=== PATIENT | female | born 1970 | race Caucasian/White ===

== ENCOUNTER 2023-03-21 18:28 | Emergency (ER) | payer OTHER, SELFPAY ==
[2023-03-21 18:34] VITALS: BP 172/99; PULSE 98; RESP 16; TEMP 36.7; O2SAT 99; BMI 25.6
--- NOTE | 2023-03-21 18:55 | W.ED.GENADLT ---
HPI - General Adult General: Chief complaint: Ear Stated complaint: Ear and throat pain Time Seen by Provider: 03/21/23 18:33 Source: patient History of Present Illness: Lymphadenopathy in her anterior neck. She notes that this has been a significant problem for the last couple of weeks. She has had this on and off, though, for the last year. She gives a history of having several outside cats, a couple of which last year around the same time. 2 more cats have recently, and another one is sick. She took the cat to the vet today, and the network technical analyst was suspicious for bobcat fever. She has pulled several ticks off of her, and she has been scratched by her other cats. Onset (ago): week(s) Location: neck Radiation: non-radiation Severity: moderate Quality: burning and aching Pain Consistency: intermittent Relieving factors: none Exacerbating factors: eating and other Associated symptoms: Reports headache(s); Deny chest pain, confusion, cough, diaphoresis, dyspnea, fevers/chills, nausea, rash, palpitations, short of breath or vomiting Review of Systems Const: Denies: diaphoresis Eyes: Denies: change in vision ENMT: Reports: throat pain, odynophagia, ear or mastoid pain and sinus pain; Denies: enlarged tonsils, mouth pain, swelling of lips/tongue, dental pain, ear discharge, change in hearing, tinnitus, nasal discharge, nasal congestion, nasal obstruction, epistaxis or post nasal drip Card: Denies: chest pain or palpitations Resp: Denies: dyspnea GI: Denies: nausea or vomiting Musc: Reports: neck pain Skin/Breast: Denies: rash Neuro: Reports: headache(s); Denies: confusion Physical Exam Const: COMMON NORMALS: no acute distress GENERAL APPEARANCE: cooperative; not ill appearing and not frail appearing HENMT: COMMON NORMALS: normocephalic, atraumatic and Normal external nose present HEAD & SCALP: normocephalic and atraumatic FACE & SINUS: normal facial exam and face symmetric NOSE: Normal external nose present Eye: COMMON NORMALS: Equal, round and reactive pupils present and EOMs intact bilaterally PUPIL: Yes Equal, round and reactive pupils present Neck/C-Spine: GENERAL: Yes trachea midline, Yes lymphadenopathy Lymphadenopathy location: submandibular and anterior cervical soft and tender and No submandibular swelling Chest: CHEST: Yes Symmetrical chest wall rise Resp: COMMON NORMALS: normal respiratory effort, No retractions, No use of accessory muscles and clear to auscultation bilaterally AUSCULTATION: clear to auscultation bilaterally Cardio: COMMON NORMALS: regular rate and regular rhythm RATE: regular rate RHYTHM: regular rhythm GI: COMMON NORMALS: Normal to inspection, nondistended, normoactive bowel sounds present Extremity: COMMON NORMALS: no pedal edema Neuro: OSKAR COMA SCALE: document GCS findings Oskar coma scale eye opening: Spontaneous [place] coma scale verbal response: Orientated [place] coma scale motor response: Obey commands [place] coma scale total score: 15 SENSORY EXAM: Yes extremities (intact) Psych: COMMON NORMALS: speech normal SPEECH: Yes normal speech Skin: COMMON NORMALS: no rashes or lesions noted NARRATIVE SKIN EXAM: Multiple bug bites in various stages of healing. GENERAL SKIN EXAM: no rashes or lesions noted Course Vital Signs: Vital signs: Vital Signs Temperature 98.1 F 03/21/23 18:34 Pulse Rate 80 03/21/23 20:04 Respiratory Rate 16 03/21/23 20:04 Blood Pressure 133/97 03/21/23 20:04 Pulse Oximetry 94 03/21/23 20:04 Oxygen Delivery Me thod Room Air 03/21/23 18:34 MDM - General Adult Medical Decision Making Humans do not get bobcat fever. However, other tickborne and/or cat borne diseases could cause tender lymphadenopathy. She will be covered for tickborne diseases as well as tularemia, with additional coverage for cat scratch disease. She is given 1 dose of dexamethasone for lymphadenopathy swelling and tenderness. We will ask case management to make her a PCP follow-up appointment. Lab Data 03/21/23 19:13 03/21/23 19:13 Laboratory Results WBC 8.7 10^3/uL (4.0-10.0) 03/21/23 19:13 RBC 4.21 10^6/uL (4.1-5.3) 03/21/23 19:13 Hgb 12.9 g/dL (11.5-15.3) 03/21/23 19:13 Hct 39.3 % (37.0-47.0) 03/21/23 19:13 MCV 93.3 fl (81-99) 03/21/23 19:13 MCH 30.6 pg (28.0-34.0) 03/21/23 19:13 MCHC 32.8 g/dL (30.0-36.0) 03/21/23 19:13 RDW 14.0 % (12.1-15.1) 03/21/23 19:13 Plt Count 312 10^3/cmm (130-400) 03/21/23 19:13 MPV 10.0 fL (7.4-10.4) 03/21/23 19:13 Neut % (Auto) 45.2 % 03/21/23 19:13 Lymph % (Auto) 40.1 % 03/21/23 19:13 [place] % (Auto) 8.6 % 03/21/23 19:13 Eos % (Auto) 5.3 % 03/21/23 19:13 Baso % (Auto) 0.6 % 03/21/23 19:13 Neut # (Auto) 3.93 10^3/uL (1.8-7.7) 03/21/23 19:13 Lymph # (Auto) 3.5 10^3/uL (0.8-4.8) 03/21/23 19:13 [place] # (Auto) 0.8 10^3/uL (0.2-0.9) 03/21/23 19:13 Eos # (Auto) 0.5 10^3/uL (0.0-0.8) 03/21/23 19:13 Baso # (Auto) 0.1 10^3/uL (0.0-0.1) 03/21/23 19:13 Nucleated RBC % (auto) 0 % 03/21/23 19:13 Nucleated RBCs # 0.0 /100WBC 03/21/23 19:13 Sodium 138 mmol/L (136-145) 03/21/23 19:13 Potassium 3.6 mmol/L (3.5-5.1) 03/21/23 19:13 Chloride 104 mmol/L (98-107) 03/21/23 19:13 Carbon Dioxide 22 mmol/L (22-29) 03/21/23 19:13 Anion Gap 15.6 (5-19) 03/21/23 19:13 BUN 13 mg/dL (6-20) 03/21/23 19:13 Creatinine 0.8 mg/dL (0.5-0.9) 03/21/23 19:13 GFR Calculation 75.9 mL/min (90-130) L 03/21/23 19:13 Glucose 97 mg/dL (65-115) 03/21/23 19:13 Calculated Osmolality 286 mOsm/kg (285-295) 03/21/23 19:13 Calcium 9.6 mg/dL (8.5-10.5) 03/21/23 19:13 Total Bilirubin 0.2 mg/dL (0.15-1.2) 03/21/23 19:13 AST 20 U/L (0-32) 03/21/23 19:13 ALT 19 U/L (0-33) 03/21/23 19:13 Alkaline Phosphatase 77 U/L (35-105) 03/21/23 19:13 Total Protein 7.6 g/dL (6.6-8.7) 03/21/23 19:13 Albumin 4.6 g/dL (3.5-5.2) 03/21/23 19:13 Globulin 3.0 g/dL (1.3-4.6) 03/21/23 19:13 Discharge Plan Discharge Patient Disposition: Home Clinical Impression: Acute lymphadenitis Condition: Stable Prescriptions: New doxycycline hyclate 100 mg tablet 100 mg PO BID 14 Days Qty: 28 0RF azithromycin 250 mg tablet See Rx Instructions .ROUTE .COMPLEX Qty: 6 0RF Rx Instructions: For 250 mg dose pack: take 500 mg today (day 1), then 250 mg for 4 days (days 2-5) Discharge Orders: Discharge ED (Routine); Ordered 03/21/23 Ordered By: Arben Wakefield Patient Instructions: Adenitis (ED) Coding Level of Care Code ED Sales Service Professional for Stephen Triplett
[2023-03-21 19:23] LABS: Basophils # 0.1 10^3/uL (0.0-0.1); Basophils % 0.6 %; Eosinophils # 0.5 10^3/uL (0.0-0.8); Eosinophils % 5.3 %; Hematocrit 39.3 % (37.0-47.0); Hemoglobin 12.9 g/dL (11.5-15.3); Lymphocytes # 3.5 10^3/uL (0.8-4.8); Lymphocytes % 40.1 %; Mean Corpuscular HGB Conc 32.8 g/dL (30.0-36.0); Mean Corpuscular Hemoglobin 30.6 pg (28.0-34.0); Mean Corpuscular Volume 93.3 fl (81-99); Monocytes # 0.8 10^3/uL (0.2-0.9); Monocytes % 8.6 %; Neutrophils # 3.93 10^3/uL (1.8-7.7); Neutrophils % 45.2 %; Nucleated Red Blood Cells % 0 %; Platelet Count 312 10^3/cmm (130-400); Red Blood Count 4.21 10^6/uL (4.1-5.3); White Blood Count 8.7 10^3/uL (4.0-10.0)
[2023-03-21] MEDS: doxycycline 100 mg Tablet PO (19:38)
[2023-03-21] MEDS: dexamethasone 4 mg Tablet 10 MG PO (19:38)
[2023-03-21] MEDS: azithromycin 250 mg Tablet 500 MG PO (19:38)
[2023-03-21 19:46] LABS: Alanine Aminotransferase 19 U/L (0-33); Albumin Level 4.6 g/dL (3.5-5.2); Alkaline Phosphatase 77 U/L (35-105); Anion Gap 15.6 (5-19); Aspartate Amino Transferase 20 U/L (0-32); Blood Urea Nitrogen 13 mg/dL (6-20); Calcium 9.6 mg/dL (8.5-10.5); Carbon Dioxide 22 mmol/L (22-29); Chloride 104 mmol/L (98-107); Glomerular Filtration Rate 75.9 mL/min (90-130); Glucose 97 mg/dL (65-115); Osmolality Calculated 286 mOsm/kg (285-295); Potassium 3.6 mmol/L (3.5-5.1); Sodium 138 mmol/L (136-145); Total Bilirubin 0.2 mg/dL (0.15-1.2); Total Protein 7.6 g/dL (6.6-8.7)
[2023-03-21 20:04] VITALS: BP 133/97; PULSE 80; RESP 16; O2SAT 94
--- NOTE | 2023-03-23 11:10 | DCPLANNER ---
Addendum entered by Lauren Mallory 04/24/23 10:37: Patient attended appointment. Addendum entered by Lauren Mallory 03/26/23 07:47: Patient called home health care case manager back wanting to get established with a primary care. manager pharmaceutical called [facility], gave clinic patients information. A follow up appointment was scheduled for , April 09, 2023 at 7:[address] Paz. Patient is aware of appointment. Original Note: manager pharmaceutical had message to speak with patient about getting established with a primary care physician. manager pharmaceutical called patient and she stated that she would call home health care case manager back about getting established with a provider.
[2023-03-25 16:03] LABS: Lyme AB Screen <0.90 index
[2023-03-31 16:59] LABS: RMSF IGG NOT DETECTED; RMSF IGM NOT DETECTED
[2023-03-31 21:53] LABS: E. Chaffeensis AB IGG <1:64; E. Chaffeensis AB IGM <1:20
== END 2023-03-21 19:43 | disposition home or self-care (01) ==
PROVIDERS: Emergency Provider Emergency Medicine
DX: L04.9 Acute lymphadenitis, unspecified (principal)
CPT/HCPCS: 36415; 80053; 85025; 86618; 86666; 86757; 99283; J8540; Q0144

== ENCOUNTER → 2023-04-09 07:00 | Outpatient (BNVA) | payer OTHER, SELFPAY | PROVIDERS: PCP Family Medicine; Visit Provider Family Medicine | DX: L67.9 Hair color and hair shaft abnormality, unspecified (principal) | CPT/HCPCS: 84443; 86038 ==

== ENCOUNTER 2023-04-29 06:04 | Outpatient (CLI) | payer OTHER, SELFPAY ==
--- NOTE | 2023-04-29 06:30 | USCV_ITS ---
Olamide Au Age: 52 Gender: F : 1970 Exam Date: 04/29/2023 06:22 Ordering Phys: Lara Paz MD Technologist: Exam Location: [facility] [place] Indication: Mitral Valve Prolapse BP: 113 / 80 HR: 66 Rhythm: Sinus Technical Quality: Adequate MEASUREMENTS (Male / Female) Normal Values 2D ECHO LV Diastolic Diameter PLAX 4.6 cm 4.2 - 5.9 / 3.9 - 5.3 cm LV Systolic Diameter PLAX 2.9 cm IVS Diastolic Thickness 1.1 cm 0.6 - 1.0 / 0.6 - 0.9 cm IVS Systolic Thickness 1.3 cm LVPW Diastolic Thickness 0.8 cm 0.6 - 1.0 / 0.6 - 0.9 cm LVPW Systolic Thickness 1.4 cm LVOT Diameter 1.9 cm LV Ejection Fraction 2D Teich 67.9 % LV Ejection Fraction MOD 2C 72.8 % LV Ejection Fraction 2C AL 71.8 % LA Diameter 3.3 cm IVC Diameter 1.3 cm M-MODE Aortic Annulus Diameter 3.1 cm LA Ao Ratio MM 1.1 MV E Point Septal Separation 1.7 cm DOPPLER AV Peak Velocity 146.0 cm/s LVOT Peak Velocity 108.0 cm/s AV Area Cont Eq vti 2.0 cm squared AV Area Cont Eq pk 2.2 cm squared MV Area PHT 3.6 cm squared Mitral E to A Ratio 1.0 MV E' Velocity 37.0 cm/s Mitral E to MV E' Ratio 4.3 Mitral E to LV E' Lateral Ratio 3.7 Mitral E to LV E' Septal Ratio 5.1 TR Peak Velocity 127.0 cm/s TR Peak Gradient 6.5 mmHg TV Peak E Velocity 69.0 cm/s Right Atrial Pressure 3.0 mmHg Pulmonary Artery Systolic Pressu 9.5 mmHg RV Acceleration Time 0.2 s FINDINGS Left Ventricle Normal left ventricular size, systolic function and wall thickness, with no regional wall motion abnormalities. Normal left ventricular wall thickness. Normal diastolic filling pattern. Left ventricular ejection fraction is estimated at 68 %. Right Ventricle The right ventricle is normal in size and function. Right Atrium The right atrium is normal in size. Left Atrium The left atrium is normal in size. Mitral Valve Structurally normal mitral valve without significant stenosis or prolapse. There is no mitral regurgitation. Aortic Valve Structurally normal aortic valve without significant sclerosis or stenosis. There is no aortic regurgitation. Tricuspid Valve Structurally normal tricuspid valve without significant stenosis or regurgitation. Pulmonary artery systolic pressure is normal. Pulmonic Valve Structurally normal pulmonic valve without significant stenosis. There is no pulmonic regurgitation. Pericardium Normal pericardium without effusion. Aorta Normal ascending aorta dimension. IVC The inferior vena cava appears normal. CONCLUSIONS Normal transthoracic echocardiogram. There is no evidence for mitral valve prolapse. There are no prior echocardiogram studies to compare. Dr. Manny Rodriguez MD (Electronically Signed) Final Date: 29 April 2023 14:58 S
== END 2023-04-29 06:05 | disposition home or self-care (01) ==
PROVIDERS: PCP Family Medicine; Visit Provider Family Medicine
DX: I34.1 Nonrheumatic mitral (valve) prolapse (principal)
CPT/HCPCS: 84443; 86038; 93306

== ENCOUNTER 2023-04-30 08:03 | Outpatient (CLI) | payer OTHER, SELFPAY ==
--- NOTE | 2023-04-30 08:25 | MM_ITS ---
WS: [id number] Bilateral screening 3D tomosynthesis digital mammogram, 04/30/2023 Clinical Data: SCREENING Comparison: None. Findings: The breast parenchymal pattern shows heterogeneous density. No spiculated masses or clustered calcifi cations are seen. There are no secondary signs of carcinoma. There are scattered benign calcification s in both breasts. MM/[id number] Impression: 1. Negative bilateral mammogram with no prior exam for review. 2. Recommend annual screening mammograms. BIRADS: 1-Negative FOLLOW UP: 1 Year Follow-up The CAD work checker was used.
== END 2023-04-30 08:04 | disposition home or self-care (01) ==
LOC: RAD 08:06
PROVIDERS: PCP Family Medicine; Visit Provider Family Medicine
DX: Z12.31 Encounter for screening mammogram for malignant neoplasm of breast (principal)
CPT/HCPCS: 77063; 77067

== ENCOUNTER 2023-06-08 20:00 | Outpatient (CLI) | payer OTHER, SELFPAY | END 2023-06-08 20:01 | disposition home or self-care (01) | LOC: SLEEP 06-09 06:37 | PROVIDERS: PCP Family Medicine; Visit Provider Family Medicine | DX: G47.30 Sleep apnea, unspecified (principal) | CPT/HCPCS: 95810 ==

== ENCOUNTER → 2023-11-11 07:54 | Outpatient (BNVA) | payer OTHER, SELFPAY | PROVIDERS: PCP Family Medicine; Visit Provider Family Medicine | DX: R19.7 Diarrhea, unspecified (principal) | CPT/HCPCS: 86003; 86008 ==

== ENCOUNTER → 2023-12-23 07:34 | Outpatient (BNVA) | payer OTHER, SELFPAY | PROVIDERS: PCP Family Medicine; Visit Provider Family Medicine | DX: R00.0 Tachycardia, unspecified (principal) | CPT/HCPCS: 80053; 83735; 85025 ==

== ENCOUNTER 2024-02-12 22:37 | Emergency (ER) | payer OTHER, SELFPAY ==
[2024-02-12 22:45] VITALS: BP 190/105; PULSE 74; RESP 16; TEMP 36.9; O2SAT 100
[2024-02-12 23:31] LABS: Basophils % 0.1 %; Hematocrit 38.8 % (36-47); Lymphocytes # 1.7 10^3/uL (0.8-4.8); Lymphocytes % 8.6 %; Mean Corpuscular HGB Conc 33.5 g/dL (30-55); Mean Corpuscular Hemoglobin 30.4 pg (27-33); Mean Corpuscular Volume 90.7 fl (85-98); Mean Platelet Volume 10.7 fL (7.4-10.4); Monocytes # 0.9 10^3/uL (0.2-0.9); Monocytes % 4.8 %; Neutrophils # 16.72 10^3/uL (1.8-7.7); Neutrophils % 85.9 %; Nucleated Red Blood Cells % 0 %; Platelet Count 383 10^3/cmm (157-399); Red Blood Count 4.28 10^6/uL (3.85-5.65); Red Cell Distribution Width 14.4 % (12.1-15.1); White Blood Count 19.46 10^3/uL (3.29-11.43)
[2024-02-12] MEDS: sodium chloride 0.9% 1,000 ML 999 ML IV (23:44)
[2024-02-12 23:45] LABS: Alanine Aminotransferase 26 U/L (0-33); Albumin Level 4.8 g/dL (3.5-5.2); Alkaline Phosphatase 95 U/L (35-105); Anion Gap 21.7 (5-19); Aspartate Amino Transferase 30 U/L (0-32); Blood Urea Nitrogen 25 mg/dL (6-20); Calcium 10.4 mg/dL (8.5-10.5); Carbon Dioxide 18 mmol/L (22-29); Chloride 101 mmol/L (98-107); Creatinine Clr Calc Pharmacy 41.8957; Globulin 3.4 g/dL (1.3-4.6); Glomerular Filtration Rate 39.6 mL/min (90-130); Glucose 161 mg/dL (65-115); Osmolality Calculated 292 mOsm/kg (285-295); Potassium 3.7 mmol/L (3.5-5.1); Sodium 137 mmol/L (136-145); Total Bilirubin 0.5 mg/dL (0.15-1.2); Total Protein 8.2 g/dL (6.6-8.7)
[2024-02-12] MEDS: metoclopramide 5 mg/mL SDV 2 mL 10 MG IVP (23:45)
[2024-02-12] MEDS: dexamethasone 10 mg/mL INJ 8 MG IVP (23:46)
[2024-02-12] MEDS: diphenhydrAMINE 50 mg/mL SDV 1mL IVP (23:48)
[2024-02-12] MEDS: ketorolac 60 mg/2 mL INJ 30 MG IVP (23:49)
[2024-02-13 00:09] LABS: Urine Appearance Clear (CLEAR); Urine Color Yellow (Yellow); pH Urine 5 (5-7)
[2024-02-13 00:10] LABS: Add Urine Microscopic? YES; Amorphous Sediment Urine TRACE /hpf; Bacteria Urine TRACE /hpf; Bilirubin Urine 1+ (Negative); Blood Urine 3+ (Negative); Coarse Granular Casts Urine 0-4 /lpf; Glucose Urine UA Norm (Normal); Ketones Urine 1+ (Negative); Leukocyte Esterase Urine Trace (Negative); Mucus Urine 1+ /hpf; Nitrate Urine Negative (Negative); Protein Urine 1+ (Negative); RBC Urine 0-4 /hpf (0-2); Urobilinogen Urine Neg (Negative)
[2024-02-13 00:11] VITALS: BP 167/87; PULSE 73; RESP 18; O2SAT 95
[2024-02-13 00:15] LABS: Influenza A by IFA negative (Negative); Influenza B by IFA negative (Negative); SARS Covid-2 Antigen negative (Negative)
--- NOTE | 2024-02-13 00:17 | CTR_ITS ---
PROCEDURE INFORMATION: Exam: CT Abdomen And Pelvis Without Contrast Exam date and time: 02/13/2024 12:25 AM Age: 53 years old Clinical indication: Abdominal pain; Prior surgery; Surgery date: 6+ months; Surgery type: Gb. Appy. Hysterectomy. Patient HX: Left flank pain with hematuria. ; Additional info: N/v, abd pain, blood in urine TECHNIQUE: Imaging protocol: Computed tomography of the abdomen and pelvis without contrast. Radiation optimization: All CT scans at this facility use at least one of these dose optimization techniques: automated exposure control; mA and/or kV adjustment per patient size (includes targeted exams where dose is matched to clinical indication); or iterative reconstruction. COMPARISON: No relevant prior studies available. RADIATION DOSE METRICS: Total DLP (mGy-cm): 384.81 FINDINGS: Lungs: Lingular atelectasis. Emphysematous changes. Liver: Normal. No mass. Gallbladder and bile ducts: Cholecystectomy. Pancreas: Normal. No ductal dilation. Spleen: Normal. No splenomegaly. Adrenal glands: Normal. No mass. Kidneys and ureters: Left ureterovesical junction 3.2 mm calculus with moderate hydronephrosis and hydroureter with perinephric edema suggestive of associated pyelonephritis. Left kidney nonobstructing calyceal stone. Stomach and bowel: Unremarkable. No obstruction. No mucosal thickening. Appendix: No evidence of appendicitis. Intraperitoneal space: Unremarkable. No free air. No significant fluid collection. Vasculature: Unremarkable. No abdominal aortic aneurysm. Lymph nodes: Unremarkable. No enlarged lymph nodes. Urinary bladder: Urinary bladder wall thickening, please correlate for cystitis versus nondistention. Reproductive: Unremarkable as visualized. Bones/joints: Unremarkable. No acute fracture. Soft tissues: Small umbilical hernia containing omentum without bowel. CT/CT kidney stone [id number] IMPRESSION: 1. Left ureterovesical junction 3.2 mm calculus with moderate hydronephrosis and hydroureter with perinephric edema suggestive of associated pyelonephritis. 2. Left kidney nonobstructing calyceal stone. 3. Urinary bladder wall thickening, please correlate for cystitis versus nondistention. 4. Small umbilical hernia containing omentum without bowel. 5. Lingular atelectasis. 6. Emphysematous changes. 7. Cholecystectomy.
[2024-02-13 00:50] VITALS: BP 167/87; PULSE 74; RESP 18; O2SAT 96
--- NOTE | 2024-02-13 00:57 | ED_ITS ---
HPI - Nausea/Vomiting/Diarrhea 2 General: Chief complaint: Nausea/Vomiting/Diarrhea Stated complaint: N/V, Chills,Fever Time Seen by Provider: 02/12/24 23:11 Source: patient Mode of arrival: ambulatory Limitations: no limitations History of Present Illness: This patient is a 53-year-old female presenting to the emergency department complaining of nausea and vomiting for the past 2 days. She also notes a few intermittent episodes of left-sided flank/abdominal exam, but notes that she has had no urinary symptoms. She states that she has been unable to keep down food or liquid. She initially thought that her symptoms were due to a migraine, as she is currently reporting a headache. However she notes that she has normally able to control these with Excedrin. She is also noting some diaphoresis as well as chills, though no fevers. No [id number] medications have helped with her symptoms. MD elicited complaint: nausea, vomiting, abdominal pain and flank pain Onset (ago): day(s) Description of vomiting: watery Associated nausea: Yes Associated abdominal pain: Yes Location of pain: LLQ and L flank Pain consistency: intermittent Severity: moderate Quality: cramping and stabbing Exacerbating factors: none Relieving factors: rest Associated symtoms: Reports diaphoresis, headache(s) and nausea; Denies chest pain, dizziness, dysuria or palpitations Review of Systems 2 General: Reports: 10 or more systems reviewed and unremarkable except in HPI and below Const: Reports: chills and diaphoresis; Denies: fever(s), change in appetite or change in weight ENMT: Denies: throat pain or hoarseness Card: Denies: chest pain, palpitations or lightheadedness Resp: Denies: dyspnea, productive cough or wheezing GI: Reports: abdominal pain, nausea and vomiting; Denies: diarrhea or constipation : Reports: flank pain; Denies: difficulty voiding, dysuria, urinary frequency or urinary urgency Musc: Denies: neck pain or back pain Skin/Breast: Denies: rash or new lesions Neuro: Reports: headache(s); Denies: dizziness PFSH ED 2 PFSH: Medical History Migraine with aura Surgical History History of lumpectomy of right breast History of appendectomy History of cholecystectomy History of total hysterectomy with bilateral salpingo-oophorectomy (BSO) Family History Mother Cancer lung (smoke related) Father Hyperlipidemia Atrial fibrillation Lung disease asthma Social History Smoking and tobacco/nicotine status: former use of tobacco/nicotine Quit status (tobacco/nicotine): has quit using Year quit tobacco: 2014 Former quit date comment: 2 ppd x 25 years Alcohol intake: never Substance/Drug Use: current Lives independently: Yes Household members: spouse Marital status: Number of children: 2 Number of grandchildren: 7 Current occupational status: employed 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 [employer] Physical Exam 2 Const: COMMON NORMALS: no acute distress, average body habitus, patient oriented x3, no limitations, healthy appearing, alert and well nourished G ENERAL APPEARANCE: cooperative and comfortable ORIENTATION/CONSCIOUSNESS: Yes awake HENMT: COMMON NORMALS: normocephalic, atraumatic, hearing grossly normal bilaterally, external ears normal, Normal external nose present, Normal nasal mucous membranes and turbinates present and moist oral mucous membranes HEAD & SCALP: normocephalic and atraumatic NOSE: Normal external nose present and Normal nasal mucous membranes and turbinates present EXTERNAL EAR: Yes external ears normal Eye: COMMON NORMALS: Equal, round and reactive pupils present, EOMs intact bilaterally, conjunctivae normal and normal visual nunez by confrontation C ONJUNCTIVA: Yes conjunctivae normal PUPIL: Yes Equal, round and reactive pupils present Neck/C-Spine: COMMON NORMALS: full ROM, supple, no meningeal signs and no JVD Resp: COMMON NORMALS: normal respiratory effort, No retractions, No use of accessory muscles and clear to auscultation bilaterally AUSCULTATION: clear to auscultation bilaterally, no crackles, no rales, no rhonchi and no wheezes Cardio: COMMON NORMALS: no JVD, regular rate, regular rhythm, S1 normal heart sound present, S2 normal heart sound present, No gallops present (Cardio), No clicks present (Cardio), No murmurs present (Cardio), No rub (Cardio) and Peripheral pulses 2+ throughout RATE: regular rate RHYTHM: regular rhythm HEART SOUNDS: S1 normal heart sound present and S2 normal heart sound present PERIPHERAL PULSES: Peripheral pulses 2+ throughout GI: COMMON NORMALS: Normal to inspection, nondistended, normoactive bowel sounds present, Soft to palpation, non-tender, No hepatosplenomegaly present and no masses AUSCULTATION: Yes normoactive bowel sounds PALPATION: Yes Soft to palpation, No Guarding due to palpation present (GI), No Rigid due to palpation and Yes No hepatosplenomegaly present RECTAL EXAM: deferred : COMMON NORMALS: Yes no CVA tenderness BLADDER/KIDNEY EXAM: Yes no CVA tenderness Back/Pelvis: COMMON NORMALS: no CVA tenderness Extremity: COMMON NORMALS: normal to inspection and full ROM Neuro: COMMON NORMALS: patient oriented x3, moves all extremities, no focal motor deficits and no sensory deficits noted SENSORIUM/ORIENTATION: Yes alert MENINGEAL SIGNS: Yes no meningeal signs Psych: COMMON NORMALS: mental status grossly normal, cooperative and speech normal SPEECH: Yes normal speech Skin: COMMON NORMALS: no rashes or lesions noted GENERAL SKIN EXAM: no rashes or lesions noted Course 2 Vital Signs: Vital signs: Vital Signs Temperature 98.5 F 02/12/24 22:45 Pulse Rate 74 02/13/24 00:50 Respiratory Rate 18 02/13/24 00:50 Blood Pressure 167/87 02/13/24 00:50 Pulse Oximetry 96 02/13/24 00:50 Oxygen Delivery Me thod Room Air 02/12/24 22:45 MDM - Nausea/Vomiting/Diarrhea Medical Decision Making This patient was seen for 2 days of nausea and vomiting as well as intermittent episodes of left-sided pain. On evaluation initially she was found to be hypertensive, this was decreased after treatment. Otherwise she was afebrile and nontoxic-appearing on exam. Examination ultimately unremarkable as there was no reproducible tenderness to palpation about her abdomen and she was normal to cardiopulmonary auscultation. She did request a migraine cocktail, which I treated her with this and upon recheck states that this was better. Her CBC showed an elevated white count at 19 with evidence of left shift. She did note to me history of CKD stage II, CMP labs showed evidence of kidney disease. Patient notes she is currently being established with a inspector watch parts for this. A urinalysis showed moderate amount of blood as well as evidence of potential infection, and due to the consistency of her pain I ordered a abdominal CT without contrast to evaluate for any stones. This did show evidence of a 3.2 mm UVJ stone with some moderate hydronephrosis and hydroureter. Condition consistent with a pyelonephritis, in which she will be treated with Levaquin. I will also send her home with Zofran for her nausea and encouraged her to drink plenty of fluids. She is given strict return precautions to the ED, to which she agrees. She states she is ready to go home now and she is clinically stable for discharge. No need to consult urology at this time due to lack of obstruction and small size of stone. Patient will be discharged home. Lab Data I reviewed the patient's lab results. 02/12/24 23:10 02/12/24 23:10 Radiology Impressions Abdomen/Pelvis CT 02/13/24 00:17 IMPRESSION: 1. Left ureterovesical junction 3.2 mm calculus with moderate hydronephrosis and hydroureter with perinephric edema suggestive of associated pyelonephritis. 2. Left kidney nonobstructing calyceal stone. 3. Urinary bladder wall thickening, please correlate for cystitis versus nondistention. 4. Small umbilical hernia containing omentum without bowel. 5. Lingular atelectasis. 6. Emphysematous changes. 7. Cholecystectomy. Laboratory Results WBC 19.46 10^3/uL (3.29-11.43) H 02/12/24 23:10 RBC 4.28 10^6/uL (3.85-5.65) 02/12/24 23:10 Hgb 13.00 g/dL (11.27-16.99) 02/12/24 23:10 Hct 38.8 % (36-47) 02/12/24 23:10 MCV 90.7 fl (85-98) 02/12/24 23:10 MCH 30.4 pg (27-33) 02/12/24 23:10 MCHC 33.5 g/dL (30-55) 02/12/24 23:10 RDW 14.4 % (12.1-15.1) 02/12/24 23:10 Plt Count 383 10^3/cmm (157-399) 02/12/24 23:10 MPV 10.7 fL (7.4-10.4) H 02/12/24 23:10 Neut % (Auto) 85.9 % 02/12/24 23:10 Lymph % (Auto) 8.6 % 02/12/24 23:10 [place] % (Auto) 4.8 % 02/12/24 23:10 Eos % (Auto) 0.0 % 02/12/24 23:10 Baso % (Auto) 0.1 % 02/12/24 23:10 Neut # (Auto) 16.72 10^3/uL (1.8-7.7) H 02/12/24 23:10 Lymph # (Auto) 1.7 10^3/uL (0.8-4.8) 02/12/24 23:10 [place] # (Auto) 0.9 10^3/uL (0.2-0.9) 02/12/24 23:10 Eos # (Auto) 0.0 10^3/uL (0.0-0.8) 02/12/24 23:10 Baso # (Auto) 0.0 10^3/uL (0.0-0.1) 02/12/24 23:10 Nucleated RBC % (auto) 0 % 02/12/24 23:10 Nucleated RBCs # 0.0 /100WBC 02/12/24 23:10 Sodium 137 mmol/L (136-145) 02/12/24 23:10 Potassium 3.7 mmol/L (3.5-5.1) 02/12/24 23:10 Chloride 101 mmol/L (98-107) 02/12/24 23:10 Carbon Dioxide 18 mmol/L (22-29) L 02/12/24 23:10 Anion Gap 21.7 (5-19) H 02/12/24 23:10 BUN 25 mg/dL (6-20) H 02/12/24 23:10 Creatinine 1.4 mg/dL (0.5-0.9) H 02/12/24 23:10 GFR Calculation 39.6 mL/min (90-130) L 02/12/24 23:10 Glucose 161 mg/dL (65-115) H 02/12/24 23:10 Calculated Osmolality 292 mOsm/kg (285-295) 02/12/24 23:10 Calcium 10.4 mg/dL (8.5-10.5) 02/12/24 23:10 Total Bilirubin 0.5 mg/dL (0.15-1.2) 02/12/24 23:10 AST 30 U/L (0-32) 02/12/24 23:10 ALT 26 U/L (0-33) 02/12/24 23:10 Alkaline Phosphatase 95 U/L (35-105) 02/12/24 23:10 Total Protein 8.2 g/dL (6.6-8.7) 02/12/24 23:10 Albumin 4.8 g/dL (3.5-5.2) 02/12/24 23:10 Globulin 3.4 g/dL (1.3-4.6) 02/12/24 23:10 Urine Color Yellow (Yellow) 02/12/24 23:53 Urine Appearance Clear (CLEAR) 02/12/24 23:53 Urine pH 5 (5-7) 02/12/24 23:53 Ur Specific [place] 1.020 (1.005-1.030) 02/12/24 23:53 Urine Protein 1+ (Negative) H 02/12/24 23:53 Urine Glucose (UA) Norm (Normal) 02/12/24 23:53 Urine Ketones 1+ (Negative) H 02/12/24 23:53 Urine Blood 3+ (Negative) H 02/12/24 23:53 Urine Nitrate Negative (Negative) 02/12/24 23:53 Urine Bilirubin 1+ (Negative) H 02/12/24 23:53 Urine Urobilinogen Neg mg/dL (Negative) 02/12/24 23:53 Ur Leukocyte Esterase Trace (Negative) H 02/12/24 23:53 Urine RBC 0-4 /hpf (0-2) H 02/12/24 23:53 Urine WBC 5-10 /hpf (0-5) H 02/12/24 23:53 Ur Squamous Epith Cells 5-10 /hpf (0-5) H 02/12/24 23:53 Amorphous Sediment Trace /hpf 02/12/24 23:53 Urine Bacteria Trace /hpf (NONE) 02/12/24 23:53 Coarse Granular Casts 0-4 /lpf H 02/12/24 23:53 Urine Mucus 1+ /hpf 02/12/24 23:53 Influenza Type A Ag negative (Negative) 02/12/24 23:53 Influenza Type B Ag negative (Negative) 02/12/24 23:53 SARS-CoV-2 Ag (Rapid) negative (Negative) 02/12/24 23:53 All radiology interpretation(s) finalized by discharge Discharge Plan Discharge Patient Disposition: Home Clinical Impression: Pyelonephritis, Ureterolithiasis Condition: Stable Prescriptions: New levofloxacin 750 mg tablet 750 mg PO DAILY 7 Days Qty: 7 0RF ondansetron HCl 4 mg tablet 4 mg PO Q8H Qty: 30 0RF hydrocodone-acetaminophen 5-325 mg tablet 1 tab PO Q6H PRN (Reason: pain) Qty: 14 0RF No Action sertraline 25 mg tablet See Rx Instructions PO DAILY Qty: 60 0RF Rx Instructions: orally daily; 1 tab po daily x 7 days then increase to 2 tab daily metoprolol succinate 50 mg tablet extended release 24 hr See Rx Instructions .ROUTE .COMPLEX Qty: 30 2RF Hold Instructions: Doctor's Order Dose Instruction: Take 1 tablet by mouth once daily Rx Instructions: Take 1 tablet by mouth once daily Discharge Orders: Discharge ED (Routine); Ordered 02/13/24 Ordered By: Ovi Christopher Referrals: Lara Paz MD [Primary Care Provider] - Discharge Diet: Usual diet Discharge Activity: Increase activity as tolerated Patient Instructions: Urinary Tract Infection in Women (ED), Ureteral Stones (ED), Pyelonephritis Activity Restrictions/Additional Instructions: Levaquin as prescribed. Zofran as needed for nausea. Tylenol and ibuprofen for pain. Plenty of fluids. Follow-up with urology as instructed. Return if you develop any new or concerning symptoms. Coding Level of Care Code ED Table Games Shift Manager for Stephen Triplett
[2024-02-13] MEDS: levoFLOXacin 750 mg Tablet PO (01:11)
[2024-02-13] MEDS: morphine 4 mg/mL SDV 1 mL IVP (01:17)
[2024-02-13] MEDS: ondansetron 2 mg/ML SDV 2 mL 4 MG IVP (01:17)
== END 2024-02-13 01:19 | disposition home or self-care (01) ==
PROVIDERS: Emergency Provider Physician Assistant; PCP Family Medicine
DX: N13.6 Pyonephrosis (principal); Z11.52 Encounter for screening for COVID-19; Z87.891 Personal history of nicotine dependence
CPT/HCPCS: 74176; 80053; 81001; 81003; 85025; 87426; 87804; 96361; 96374; 96375; 99285; J1100; J1200; J1885; J2270; J2405; J2765; J7030

== ENCOUNTER → 2024-02-16 12:59 | Outpatient (BNVA) | payer OTHER, SELFPAY | PROVIDERS: PCP Family Medicine; Visit Provider Clinical Nurse Specialist Adult Health | DX: N12 Tubulo-interstitial nephritis, not specified as acute or chronic (principal) | CPT/HCPCS: 80053; 81000; 85025; 87086 ==

== ENCOUNTER 2024-03-16 10:49 | Outpatient (CLI) | payer OTHER, SELFPAY ==
--- NOTE | 2024-03-16 11:15 | CT_ITS ---
WS: [id number] LDCT LUNG CANCER SCREENING HISTORY: lung cancer screening TECHNIQUE: Axial imaging performed from the apices to 1 cm below the costophrenic angles. Coronal and sagittal reformats are submitted with axial MIP series. All CT scans at [facility] use at least one of these dose optimization techniques: automated exposure control; mA and/or kV adjustment per patient size (includes targeted exams where dose is matched to clinical indication); or iterativ e reconstruction. DLP: 49.41 mGy.cm DIvol: Mean CTDIvol: 0.80 (mGy) COMPARISON: None available. Diagnostic quality: Satisfactory Lungs: Curvilinear scar at the LEFT apex. No mass. No nodules or pneumonia. Heart: Normal size heart with no pericardial effusion.. Other findings: No mediastinal or hilar adenopathy. Normal size aorta and pulmonary artery. No adrena l mass. Prior cholecystectomy. CT/CT lung screening [id number] IMPRESSION: LUNG-RADS: 1-Negative FOLLOW UP: 12 Month: Continue annual screening with LDCT OTHER FINDINGS (S MODIFIER): None.
== END 2024-03-16 10:50 | disposition home or self-care (01) ==
LOC: RAD 10:49
PROVIDERS: PCP Family Medicine; Visit Provider Family Medicine
DX: Z12.2 Encounter for screening for malignant neoplasm of respiratory organs (principal); Z87.891 Personal history of nicotine dependence; J98.4 Other disorders of lung; Z98.890 Other specified postprocedural states
CPT/HCPCS: 71271

== ENCOUNTER 2025-08-29 18:59 | Inpatient (IN) | payer OTHER, SELFPAY ==
--- OUTSIDE RECORDS SUMMARY | 2024-09-08 09:30 | XMS_ITS ---
Author Organization [employer], [facility] Address [address] [facility] [place] [address] Care Team Providers Care Barytes Grinder Name Role Phone Lara Paz Primary Care Provider Unavailab LILIANA Zaldivar Unavailable [phone] REASON FOR VISIT 6 mo w/ ua/pvr/kub Medications Medication SIG (Take, Route, Frequency, Duration) Notes Start Date End Date Status Zofran Active Sertraline HCl Activ e tiZANidine HCl 4 MG 1 capsule at bedtime as needed Orally Once a day Active HYDROcodone-Acetaminophen 5-325 MG 1 tablet as needed Orally every 6 hrs Active Tamsulosin HCl 0.4 MG 1 capsule Orally O nce a day; Duration: 14 days Active Metoprolol Succinate ER Active levoFLOXacin 750 MG 1 tablet Orally Once a day X 7 days 02/16/2024 Active Encounters Encounter Location Date Provider Diagnosis [facility], [facility] [address] [place] [address] 09/08/2024 LILIANA HOGAN Plan Of Treatment No Information Progress Notes * Elliot AGUEROOB: 2 (54 yo F)Acc No.[id number]:09/08/2024 Progress Notes Patient: Olamide WALDRON Provider: ROMEO Rocha :1970 A ge:53 Y S ex:Female Date:09/08/2024 Address:[address] [place] [address], [id number] Pcp:Lara Paz Subjective: * Chief Complaints: * 1 . 6 mo w/ ua/pvr/kub. * Medical History: * Medications: T aking tiZANidine HCl 4 MG Capsule 1 capsule at bedtime as needed Orally Once a day , Taking Sertraline HCl , Taking Zofran , Taking Metoprolol Succinate ER , Taking levoFLOXacin 750 MG Tablet 1 tablet Orally Once a day , Notes to Pharmacist: X 7 days, Taking HYDROcodone-Acetaminophen 5-325 MG Tablet 1 tablet as needed Orally every 6 hrs , Taking Tamsulosin HCl 0.4 MG Capsule 1 capsule Orally Once a day Objective: * Vitals: Assessment: Plan: * Treatment: * Billing Information: * Visit Code: * Procedure Codes: * Electronic signature of LILIANA HOGAN APRN on 08/30/2025 at 05:36 AM TRIAL MANAGEMENT ASSOCIATE Sign off status: Pending * Provider: Krystal Hogan APRN-[facility] Date: 11/08/2023 Generated for Simba sepulveda/Pierre/Sophie on: 10/30/2024 05:36 AM TRIAL MANAGEMENT ASSOCIATE
--- OUTSIDE RECORDS SUMMARY | 2024-09-08 09:30 | XMS_ITS ---
Author Organization [employer], [facility] Address [address] [place] [address] Care Team Providers Care Prepper Name Role Phone Lara Paz Primary Care Provider Unavailab LILIANA Zaldivar Unavailable [phone] REASON FOR VISIT 6 mo w/ ua/pvr/kub [...] Active Encounters Encounter Location Date Provider Diagnosis [facility], [facility] [address] [place] [address] 09/08/2024 LILIANA HOGAN Plan Of Treatment No Information Progress Notes * Elliot AGUEROOB: 2 (54 yo F)Acc No.[id number]:09/08/2024 Progress Notes Patient: Olamide WALDRON Provider: ROMEO Rocha :1970 A ge:53 Y S ex:Female Date:09/08/2024 Address:[address] [place] [address], [place], [id number] Pcp:Lara Paz Subjective: * Chief Complaints: [...] Electronic signature of LILIANA HOGAN APRN on 08/29/2025 at 07:05 PM ENGINEERING TECHNOLOGIST Sign off status: Pending * Provider: Krystal Hogan APRN-[facility] Date: 11/08/2023 Generated for Simba sepulveda/Pierre/Sophie on: 10/29/2024 07:05 PM ENGINEERING TECHNOLOGIST
[2025-08-29 19:05] VITALS: BP 182/103; PULSE 103; RESP 20; TEMP 36.7; O2SAT 98; BMI 25.6
--- OUTSIDE RECORDS SUMMARY | 2025-08-29 19:06 | XMS_ITS | Patient Health Record ---
Author Organization [facility] Address [address] [place] [address] Care Team Providers Care Maintenance Planner Name Role Phone JacksonLara patel Primary Care Provider UnavailLILIANA Sabillon Unavailable [phone] Allergies Allergen (clinical drug ingredient) Drug/Non Drug Allergy documented on EMR Reaction Allergy Type Onset Date Status Alpha-Gal allergy Drug Allergy Active topiramate Topiramate allergy Drug Allergy Activ e Reason For Referral No Information Medications Medication SIG (Take, Route, Frequency, Duration) Notes Start Date End Date Status Metoprolol Succinate ER Active Zofran Active Sertraline HCl Activ e tiZANidine HCl 4 MG 1 capsule at bedtime as needed Orally Once a day Active HYDROcodone-Acetaminophen 5-325 MG 1 tablet as needed Orally every 6 hrs Active levoFLOXacin 750 MG 1 tablet Orally Once a day X 7 days 02/16/2024 Active Tamsulosin HCl 0.4 MG 1 capsule Orally O nce a day; Duration: 14 days Active Social History Tobacco Use: Social History Observation Description Date Details (start date - stop date) Former Smoker NA - NA Tobacco Control (Standard) Question Answer Notes Tobacco use: Former smoker How long has it been since you last smoked? Grea ter than 10 years Problems Problem Type SNOMED Code ICD Code Onset Dates Problem Status W/U Status Risk Notes Problem Ureteral stone with hydronephrosis (N13.2) Active confirmed Problem Leukocytosis (262285694) Leukocytosis (D72.829) Active confirmed Problem Kidney stone (94250850) Left nephrolithiasis (N20.0) Active confirmed Plan Of Treatment Pending Test Test Name Order Date Renal Ultrasound TERESA [id number] 03/01/2024 BASIC METABOLIC PANEL (44554) 03/01/2024 CBC (H/H, RBC, INDICES, WBC, PLT) (1759) 03/01/2024 Future Test Test Name Order Date [id number] KUB, X-Ray: Abdomen, Kidney, Urete r, bladder 08/19/2024 Insurance Providers Payer Name Payer Address Payer Phone Subscriber Number Group Number Insured Name Patient Relationship to Insured Coverage Start Date Coverage End Date [facility] [address] [address] [place], [place] [id number] Olamide Au Self - patient is the insured Medical (General) History Medical History History ICD Code Alpha Gal Kidney stones migraine headaches Hx ARIE and hydronephrosis 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
--- NOTE | 2025-08-29 19:08 | ECG_ITS ---
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 Measurements Intervals [place] Rate: 106 P: 78 MA: 148 QRS: 76 QRSD: 100 T: 54 QT: 328 QTc: 435 Interpretive Statements SINUS TACHYCARDIA LEFT ATRIAL ENLARGEMENT [-0.15mV P-WAVE IN V1/V2] LEFT VENTRICULAR HYPERTROPHY POSSIBLE RIGHT VENTRICULAR CONDUCTION DELAY [RSR (QR) IN V1/V2] NONSPECIFIC ST & T-WAVE ABNORMALITY, POSSIBLE ISCHEMIA No previous ECG available for comparison Electronically Signed On 09-03-2025 16:51:33 CRIBBER by Jermaine Carrasquillo M.D. [id number]
[2025-08-29 19:22] VITALS: BP 162/99; PULSE 107; RESP 20; O2SAT 99
[2025-08-29 19:23] LABS: Hematocrit 41.9 % (36-47); Hemoglobin 14.30 g/dL (11.27-16.99); Mean Corpuscular HGB Conc 34.1 g/dL (30-55); Mean Corpuscular Hemoglobin 30.2 pg (27-33); Mean Corpuscular Volume 88.4 fl (85-98); Nucleated Red Blood Cells % 0 %; Platelet Count 403 10^3/cmm (157-399); Red Blood Count 4.74 10^6/uL (3.85-5.65); White Blood Count 20.08 10^3/uL (3.29-11.43)
--- NOTE | 2025-08-29 19:38 | CTR_ITS ---
PROCEDURE INFORMATION: Exam: CT Abdomen And Pelvis With Contrast Exam date and time: 08/29/2025 9:35 PM Age: 54 years old Clinical indication: Abdominal pain; Prior surgery; Surgery date: 6+ months; Surgery type: Hysterectomy, exploratory, appendectomy, beti; Additional info: Abdominal pain, n, v, d; Fevers TECHNIQUE: Imaging protocol: Computed tomography of the abdomen and pelvis with contrast. Radiation optimization: All CT scans at this facility use at least one of these dose optimization techniques: automated exposure control; mA and/or kV adjustment per patient size (includes targeted exams where dose is matched to clinical indication); or iterative reconstruction. Contrast material: OMNI 350; Contrast volume: 100 ml; Contrast route: INTRAVENOUS (IV); COMPARISON: CT kidney stone [id number] 02/13/2024 12:25 AM RADIATION DOSE METRICS: Total DLP (mGy-cm): 406.43 FINDINGS: Lungs: Atelectatic changes in the anterior aspect of the lingula. Liver: Normal. No mass. Gallbladder and biliary ducts: The gallbladder is absent. Pancreas: Normal. No ductal dilation. Spleen: Normal. No splenomegaly. Adrenal glands: Normal. No mass. Kidneys and ureters: Normal. No hydronephrosis. Stomach and bowel: Unremarkable. No obstruction. No mucosal thickening. Appendix: The appendix is not visualized but there are no secondary signs of acute appendicitis. Intraperitoneal space: Unremarkable. No free air. No significant fluid collection. Vasculature: Unremarkable. No abdominal aortic aneurysm. Lymph nodes: Unremarkable. No enlarged lymph nodes. Urinary bladder: Unremarkable as visualized. Reproductive: Unremarkable as visualized. Bones/joints: Unremarkable. No acute fracture. Soft tissues: Unremarkable. CT/CT abdomen pelvis w con* [id number] IMPRESSION: 1. No bowel obstruction or inflammatory process associated with the bowel. 2. No free air or significant free fluid in the abdomen or pelvis. 3. The appendix is not visualized but there are no secondary signs of acute appendicitis.
--- NOTE | 2025-08-29 19:39 | ED_ITS ---
Documented by User: ROBBY Vann 08/29/25 23:34 HPI - Abdominal Pain 2 General: Chief Complaint: Abdominal Pain Stated Complaint: N/V,fever,stomach pain,headache,palpitations,SOB Time Seen by Provider: 08/29/25 19:14 Source: patient Mode of arrival: ambulatory Limitations: no limitations History of Present Illness: Patient is a 54 presents to ED today with complaint of abdominal pain, nausea, vomiting, diarrhea, subjective fevers beginning yesterday. She initially thought it could be secondary to something she ate. No sick contacts. She has not noted any hematemesis or blood in her stool. States she has a headache and feels dehydrated. Patient states her pain is diffuse. She is a habitual marijuana user. No history of hyperemesis cannabis syndrome. She also feels like her kidneys hurt bilaterally. No complaints of dysuria, cloudy, or odorous urine but does feel like it is bubbly . MD elicited complaint: abdominal pain Pertinent past history: none Onset (ago): day(s) (yesterday) Pain Consistency: constant Location: Diffuse Severity: moderate Quality: cramping Radiation: none Migration to: no migration Exacerbating factors: nothing Relieving factors: nothing Associated Symptoms: Reports chills, diarrhea, fever(s) (subjective), nausea and vomiting; Denies dysuria and hematuria Related Data Home Medications ?Medication ?Instructions ?Recorded ?Confirmed Evon 60 mg PO DAILY 08/30/2508/19 Excedrin Migraine 250 mg PO QID PRN Headache 1 10/30/24 08/30/25 Previous Rx's ?Medication ?Instructions ?Recorded metoprolol succinate 50 mg See Rx Instructions .Route 05/05/25 tablet,extended release 24 hr .COMPLEX #90 tabs venlafaxine 75 mg tablet,extended 75 mg PO DAILY #90 t abs 07/28/25 release 24 hr Allergies Allergy/AdvReac Type Severity Reaction Status Date / Time Alpha-Gal Allergy Unknown Verified 08/29/25 19:10 (Mbuhnfvum-Exzog-5,3-Gala topiramate (From Topamax) Allergy brain fog Verified 08/29/25 19:10 Review of Systems 2 Const: Reports: fever(s) (subjective) and chills Card: Denies: chest pain Resp: Denies: dyspnea GI: Reports: abdominal pain, nausea, vomiting and diarrhea : Reports: flank pain; Denies: difficulty voiding, dysuria, urinary frequency, urinary urgency, urinary hesitancy, dribbling or hematuria Musc: Reports: back pain (flank pain); Denies: neck pain, extremity pain, extremity swelling, joint pain or joint swelling Skin/Breast: Denies: rash Neuro: Denies: headache(s), numbness in extremities, weakness in extremities or sensory changes PFSH ED 2 PFSH: Medical History History of kidney stones Migraine with aura Surgical History History of lumpectomy of right breast History of appendectomy History of cholecystectomy History of total hysterectomy with bilateral salpingo-oophorectomy (BSO) Family History Mother Cancer lung (smoke related) Father Hyperlipidemia Atrial fibrillation Lung disease asthma Social History Smoking and tobacco/nicotine status: current every day tobacco/nicotine user Quit status (tobacco/nicotine): has quit using Year quit tobacco: 2014 Former quit date comment: 2 ppd x 25 years Alcohol intake: never Substance/Drug Use: current Lives independently: Yes Household members: spouse Marital status: Number of children: 2 Number of grandchildren: 7 Current occupational status: employed 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 [employer] Physical Exam 2 Const: COMMON NORMALS: no acute distress, average body habitus, patient oriented x3, no limitations, healthy appearing, alert and well nourished G ENERAL APPEARANCE: cooperative ORIENTATION/CONSCIOUSNESS: Yes awake, Yes oriented to person, Yes oriented to place and Yes oriented to time Eye: COMMON NORMALS: no scleral icterus Neck/C-Spine: COMMON NORMALS: no lymphadenopathy Resp: COMMON NORMALS: normal respiratory effort and clear to auscultation bilaterally AUSCULTATION: clear to auscultation bilaterally Cardio: COMMON NORMALS: regular rhythm RATE: tachycardic RHYTHM: regular rhythm GI: COMMON NORMALS: Normal to inspection, nondistended, normoactive bowel sounds present, Soft to palpation, No hepatosplenomegaly present and no masses INSPECTION: Yes normal to inspection PALPATION: Yes Soft to palpation, Yes Tenderness to palpation present (GI) (upper abdomen; mainly near epigastric), No Guarding due to palpation present (GI), No Rigid due to palpation and Yes No hepatosplenomegaly present : BLADDER/KIDNEY EXAM: Yes CVA tenderness bilateral Back/Pelvis: COMMON NORMALS: thoracic and lumbar spine normal to inspection and no thoracic nor lumbar tenderness GENERAL BACK: Yes CVA tenderness Extremity: GENERAL: Yes normal exam except as noted Neuro: COMMON NORMALS: patient oriented x3, moves all extremities, no focal motor deficits and no sensory deficits noted SENSORIUM/ORIENTATION: Yes alert, Yes oriented to person, Yes oriented to place and Yes oriented to time Skin: COMMON NORMALS: no rashes or lesions noted GENERAL SKIN EXAM: no rashes or lesions noted Course 2 Vital Signs: Vital signs: Vital Signs Temperature 98.3 F 08/30/25 03:45 Pulse Rate 71 08/30/25 03:45 Respiratory Rate 16 08/30/25 03:45 Blood Pressure 196/94 08/30/25 03:45 Pulse Oximetry 95 08/30/25 03:45 Oxygen Delivery Me thod Room Air 08/30/25 03:45 MDM - Abdominal Pain Medical Decision Making Patient is a 54-year-old female presents to ED today with complaint of abdominal pain, nausea, vomiting, diarrhea starting yesterday. She has not had any episodes of hematemesis or bloody stools. She did report subjective fevers. Vital signs upon arrival showing hypertension and mild tachycardia. Blood work showed a white count of 20.08 with a left shift. Her initial lactic was 6.4. Due to concern of sepsis, she was started on a sepsis fluid bolus, blood cultures obtained and prophylactic antibiotics ordered while we awaited the remainder of her labs. On her chemistry she was found to have a bicarb of 14 with a gap of almost 30. Glucose was 184. Serum ketones were negative. ABG obtained showing a normal pH. Her bicarb was normal on ABG. UA clear. She was given some oral potassium for mild hypokalemia. I am adding salicylates and alcohol due to her elevated gap. Repeat lactate is normal at 1.5 CT scan imaging obtained and unremarkable. I think it is reasonable to keep her in the hospital with those labs. I spoke to Dr. Shafer who agrees. I spoke to Dr. Kirk who will admit her. Differential Diagnosis Likely abdominal pain, diverticulitis, gastroenteritis, pancreatitis and small bowel obstruction Medical Records I reviewed the patient's medical records. Lab Data I reviewed the patient's lab results. 08/29/25 19:18 08/29/25 19:18 Labs/Radiology: Radiology Impressions Abdomen/Pelvis CT 08/29/25 19:38 IMPRESSION: 1. No bowel obstruction or inflammatory process associated with the bowel. 2. No free air or significant free fluid in the abdomen or pelvis. 3. The appendix is not visualized but there are no secondary signs of acute appendicitis. Chest X-Ray 08/29/25 23:31 IMPRESSION: No acute findings. Laboratory Results WBC 20.08 10^3/uL (3.29-11.43) H 08/29/25 19:18 RBC 4.74 10^6/uL (3.85-5.65) 08/29/25 19:18 Hgb 14.30 g/dL (11.27-16.99) 08/29/25 19:18 Hct 41.9 % (36-47) 08/29/25 19:18 MCV 88.4 fl (85-98) 08/29/25 19:18 MCH 30.2 pg (27-33) 08/29/25 19:18 MCHC 34.1 g/dL (30-55) 08/29/25 19:18 RDW 13.6 % (12.1-15.1) 08/29/25 19:18 Plt Count 403 10^3/cmm (157-399) H 08/29/25 19:18 MPV 9.9 fL (7.4-10.4) 08/29/25 19:18 Neut % (Auto) 89.4 % 08/29/25 19:18 Lymph % (Auto) 6.3 % 08/29/25 19:18 [place] % (Auto) 3.8 % 08/29/25 19:18 Eos % (Auto) 0.0 % 08/29/25 19:18 Baso % (Auto) 0.1 % 08/29/25 19:18 Neut # (Auto) 17.93 10^3/uL (1.8-7.7) H 08/29/25 19:18 Lymph # (Auto) 1.3 10^3/uL (0.8-4.8) 08/29/25 19:18 [place] # (Auto) 0.8 10^3/uL (0.2-0.9) 08/29/25 19:18 Eos # (Auto) 0.0 10^3/uL (0.0-0.8) 08/29/25 19:18 Baso # (Auto) 0.0 10^3/uL (0.0-0.1) 08/29/25 19:18 Nucleated RBC % (auto) 0 % 08/29/25 19:18 Nucleated RBCs # 0.0 /100WBC 08/29/25 19:18 Specimen Type Arterial 08/29/25 21:55 Sample Site Brachial, left 08/29/25 21:55 ABG pH 7.44 (7.35-7.45) 08/29/25 21:55 ABG pCO2 32.7 mmHg (35-45) L 08/29/25 21:55 ABG pO2 76.2 mmHg (80.0-100.0) L 08/29/25 21:55 ABG HCO3 22.0 mmol/L (22-26) 08/29/25 21:55 ABG O2 Saturation 95.3 08/29/25 21:55 ABG Base Excess -1.5 mmol/L (-2.0-2.0) 08/29/25 21:55 [place] Test N/a 08/29/25 21:55 A-a O2 Gradient 4.2 mmHg (5-10) L 08/29/25 21:55 Hematocrit 39.3 % (37-47) 08/29/25 21:55 Hgb O2 Saturation 94.3 % (95-100) L 08/29/25 21:55 Carboxyhemoglobin < 0.3 %THgb (0.4-20.1) L 08/29/25 21:55 Methemoglobin 1.0 % (0.4-1.5) 08/29/25 21:55 Total Hemoglobin 12.8 g/dL (12-16) 08/29/25 21:55 Sodium 142.0 mmol/L (131-143) 08/29/25 21:55 Potassium 2.9 mmol/L (3.5-5.0) L 08/29/25 21:55 Glucose 132.0 mg/dL (70-115) H 08/29/25 21:55 Ionized Calcium 1.2 mmol/L (1.1-1.4) 08/29/25 21:55 O2 Delivery Device Room air 08/29/25 21:55 Clinical Trials Data Coordinator ID [email or web address] 08/29/25 21:55 Sodium 139 mmol/L (136-145) 08/29/25 19:18 Potassium 3.2 mmol/L (3.5-5.1) L 08/29/25 19:18 Chloride 99 mmol/L (98-107) 08/29/25 19:18 Carbon Dioxide 14 mmol/L (22-29) L 08/29/25 19:18 Anion Gap 29.2 (5-19) H 08/29/25 19:18 BUN 18 mg/dL (6-20) 08/29/25 19:18 Creatinine 0.9 mg/dL (0.5-0.9) 08/29/25 19:18 GFR Calculation 65.8 mL/min (90-130) L 08/29/25 19:18 Glucose 184 mg/dL (65-115) H 08/29/25 19:18 Calculated Osmolality 295 mOsm/kg (285-295) 08/29/25 19:18 Lactic Acid 6.4 mmol/L (0.5-2.2) H* 08/29/25 19:18 Lactic Acid (Sepsis) 1.5 mmol/L (0.5-2.2) 08/29/25 22:27 Calcium 11.0 mg/dL (8.5-10.5) H 08/29/25 19:18 Magnesium 1.7 mg/dL (1.7-2.3) 08/29/25 22:27 Total Bilirubin 0.4 mg/dL (0.15-1.2) 08/29/25 19:18 AST 26 U/L (0-32) 08/29/25 19:18 ALT 21 U/L (0-33) 08/29/25 19:18 Alkaline Phosphatase 96 U/L (35-105) 08/29/25 19:18 Total Protein 9.0 g/dL (6.6-8.7) H D 08/29/25 19:18 Albumin 5.3 g/dL (3.5-5.2) H 08/29/25 19:18 Globulin 3.7 g/dL (1.3-4.6) 08/29/25 19:18 Lipase 17 U/L (13-60) 08/29/25 19:18 Urine Color Yellow (Yellow) 08/29/25 22:05 Urine Appearance Clear (CLEAR) 08/29/25 22:05 Urine pH 6.0 (5-7) 08/29/25 22:05 Ur Specific [place] 1.059 (1.005-1.030) H 08/29/25 22:05 Urine Protein 1+ (Negative) A 08/29/25 22:05 Urine Glucose (UA) Negative (Normal) 08/29/25 22:05 Urine Ketones Trace (Negative) 08/29/25 22:05 Urine Blood 1+ (Negative) A 08/29/25 22:05 Urine Nitrate Negative (Negative) 08/29/25 22:05 Urine Bilirubin Negative (Negative) 08/29/25 22:05 Urine Urobilinogen 0.2 mg/dL (Negative) 08/29/25 22:05 Ur Leukocyte Esterase Negative (Negative) 08/29/25 22:05 Urine RBC 0-2 /hpf (0-2) 08/29/25 22:05 Urine WBC 0-5 /hpf (0-5) 08/29/25 22:05 Ur Squamous Epith Cells 0-5 /hpf (0-5) 08/29/25 22:05 Amorphous Sediment Not Reportable 08/29/25 22:05 Urine Bacteria None seen /hpf (NONE) 08/29/25 22:05 Hyaline Casts 0-4 /lpf H 08/29/25 22:05 Salicylates 15.8 mg/dL (3-10) H 08/29/25 19:18 Urine Opiates Screen Positive ng/mL (Negative) H 08/29/25 22:05 Ur Barbiturates Screen Negative ng/mL (Negative) 08/29/25 22:05 Ur Phencyclidine Scrn Negative ng/mL (Negative) 08/29/25 22:05 Ur Amphetamines Screen Negative ng/mL (Negative) 08/29/25 22:05 U Benzodiazepines Scrn Positive ng/mL (Negative) H 08/29/25 22:05 Urine Cocaine Screen Negative ng/mL (Negative) 08/29/25 22:05 U Marijuana (THC) Screen Positive ng/mL (Negative) H 08/29/25 22:05 Ethyl Alcohol < 10 mg/dL (0-10) 08/29/25 19:18 Serum Ketones Negative (Negative) 08/29/25 19:18 All radiology interpretation(s) finalized by discharge Discharge Plan Discharge Patient Disposition: Admitted As Inpatient Admit Provider: Dave Kirk Clinical Impression: Gastroenteritis, Acute hypokalemia, High anion gap metabolic acidosis Condition: Stable Coding Level of Care Code ED Web Marketing Strategist for Chg Fwd Documented by User: Ladonna Shafer MD 08/30/25 03:57 HPI - Abdominal Pain 2 General: Chief Complaint: Abdominal Pain Stated Complaint: N/V,fever,stomach pain,headache,palpitations,SOB Time Seen by Provider: 08/29/25 19:14 Related Data Home Medications ?Medication ?Instructions ?Recorded ?Confirmed Evon 60 mg PO DAILY 08/30/2508/19 Excedrin Migraine 250 mg PO QID PRN Headache 1 10/30/24 08/30/25 Previous Rx's ?Medication ?Instructions ?Recorded metoprolol succinate 50 mg See Rx Instructions .Route 05/05/25 tablet,extended release 24 hr .COMPLEX #90 tabs venlafaxine 75 mg tablet,extended 75 mg PO DAILY #90 t abs 07/28/25 release 24 hr Allergies Allergy/AdvReac Type Severity Reaction Status Date / Time Alpha-Gal Allergy Unknown Verified 08/29/25 19:10 (Vsbvchxeh-Epapg-0,3-Gala topiramate (From Topamax) Allergy brain fog Verified 08/29/25 19:10 PFSH ED 2 PFSH: Medical History History of kidney stones Migraine with aura Surgical History History of lumpectomy of right breast History of appendectomy History of cholecystectomy History of total hysterectomy with bilateral salpingo-oophorectomy (BSO) Family History Mother Cancer lung (smoke related) Father Hyperlipidemia Atrial fibrillation Lung disease asthma Social History Smoking and tobacco/nicotine status: current every day tobacco/nicotine user Quit status (tobacco/nicotine): has quit using Year quit tobacco: 2014 Former quit date comment: 2 ppd x 25 years Alcohol intake: never Substance/Drug Use: current Lives independently: Yes Household members: spouse Marital status: Number of children: 2 Number of grandchildren: 7 Current occupational status: employed 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 She has not had any episodes of hematemesis or bloody stools. She did report subjective fevers. Vital signs upon arrival showing hypertension and mild tachycardia. Blood work showed a white count of 20.08 with a left shift. Her initial lactic was 6.4. Due to concern of sepsis, she was started on a sepsis fluid bolus, blood cultures obtained and prophylactic antibiotics ordered while we awaited the remainder of her labs. On her chemistry she was found to have a bicarb of 14 with a gap of almost 30. Glucose was 184. Serum ketones were negative. ABG obtained showing a normal pH. Her bicarb was normal on ABG. UA clear. She was given some oral potassium for mild hypokalemia. I am adding salicylates and alcohol due to her elevated gap. Repeat lactate is normal at 1.5 CT scan imaging obtained and unremarkable. I think it is reasonable to keep her in the hospital with those labs. I spoke to Dr. Shafer who agrees. I spoke to Dr. Kirk who will admit her. ATTENDING PHYSICIAN ATTESTATION: I, Ladonna Shafer MD, have discussed the presentation with Yu Bishop and agree with documentation as above, agree with plan of care to admit patient for observation and further care. Lab Data 08/29/25 19:18 08/29/25 19:18 Labs/Radiology: Radiology Impressions Abdomen/Pelvis CT 08/29/25 19:38 IMPRESSION: 1. No bowel obstruction or inflammatory process associated with the bowel. 2. No free air or significant free fluid in the abdomen or pelvis. 3. The appendix is not visualized but there are no secondary signs of acute appendicitis. Chest X-Ray 08/29/25 23:31 IMPRESSION: No acute findings. Laboratory Results WBC 20.08 10^3/uL (3.29-11.43) H 08/29/25 19:18 RBC 4.74 10^6/uL (3.85-5.65) 08/29/25 19:18 Hgb 14.30 g/dL (11.27-16.99) 08/29/25 19:18 Hct 41.9 % (36-47) 08/29/25 19:18 MCV 88.4 fl (85-98) 08/29/25 19:18 MCH 30.2 pg (27-33) 08/29/25 19:18 MCHC 34.1 g/dL (30-55) 08/29/25 19:18 RDW 13.6 % (12.1-15.1) 08/29/25 19:18 Plt Count 403 10^3/cmm (157-399) H 08/29/25 19:18 MPV 9.9 fL (7.4-10.4) 08/29/25 19:18 Neut % (Auto) 89.4 % 08/29/25 19:18 Lymph % (Auto) 6.3 % 08/29/25 19:18 [place] % (Auto) 3.8 % 08/29/25 19:18 Eos % (Auto) 0.0 % 08/29/25 19:18 Baso % (Auto) 0.1 % 08/29/25 19:18 Neut # (Auto) 17.93 10^3/uL (1.8-7.7) H 08/29/25 19:18 Lymph # (Auto) 1.3 10^3/uL (0.8-4.8) 08/29/25 19:18 [place] # (Auto) 0.8 10^3/uL (0.2-0.9) 08/29/25 19:18 Eos # (Auto) 0.0 10^3/uL (0.0-0.8) 08/29/25 19:18 Baso # (Auto) 0.0 10^3/uL (0.0-0.1) 08/29/25 19:18 Nucleated RBC % (auto) 0 % 08/29/25 19:18 Nucleated RBCs # 0.0 /100WBC 08/29/25 19:18 Specimen Type Arterial 08/29/25 21:55 Sample Site Brachial, left 08/29/25 21:55 ABG pH 7.44 (7.35-7.45) 08/29/25 21:55 ABG pCO2 32.7 mmHg (35-45) L 08/29/25 21:55 ABG pO2 76.2 mmHg (80.0-100.0) L 08/29/25 21:55 ABG HCO3 22.0 mmol/L (22-26) 08/29/25 21:55 ABG O2 Saturation 95.3 08/29/25 21:55 ABG Base Excess -1.5 mmol/L (-2.0-2.0) 08/29/25 21:55 [place] Test N/a 08/29/25 21:55 A-a O2 Gradient 4.2 mmHg (5-10) L 08/29/25 21:55 Hematocrit 39.3 % (37-47) 08/29/25 21:55 Hgb O2 Saturation 94.3 % (95-100) L 08/29/25 21:55 Carboxyhemoglobin < 0.3 %THgb (0.4-20.1) L 08/29/25 21:55 Methemoglobin 1.0 % (0.4-1.5) 08/29/25 21:55 Total Hemoglobin 12.8 g/dL (12-16) 08/29/25 21:55 Sodium 142.0 mmol/L (131-143) 08/29/25 21:55 Potassium 2.9 mmol/L (3.5-5.0) L 08/29/25 21:55 Glucose 132.0 mg/dL (70-115) H 08/29/25 21:55 Ionized Calcium 1.2 mmol/L (1.1-1.4) 08/29/25 21:55 O2 Delivery Device Room air 08/29/25 21:55 Clinical Trials Data Coordinator ID [email or web address] 08/29/25 21:55 Sodium 139 mmol/L (136-145) 08/29/25 19:18 Potassium 3.2 mmol/L (3.5-5.1) L 08/29/25 19:18 Chloride 99 mmol/L (98-107) 08/29/25 19:18 Carbon Dioxide 14 mmol/L (22-29) L 08/29/25 19:18 Anion Gap 29.2 (5-19) H 08/29/25 19:18 BUN 18 mg/dL (6-20) 08/29/25 19:18 Creatinine 0.9 mg/dL (0.5-0.9) 08/29/25 19:18 GFR Calculation 65.8 mL/min (90-130) L 08/29/25 19:18 Glucose 184 mg/dL (65-115) H 08/29/25 19:18 Calculated Osmolality 295 mOsm/kg (285-295) 08/29/25 19:18 Lactic Acid 6.4 mmol/L (0.5-2.2) H* 08/29/25 19:18 Lactic Acid (Sepsis) 1.5 mmol/L (0.5-2.2) 08/29/25 22:27 Calcium 11.0 mg/dL (8.5-10.5) H 08/29/25 19:18 Magnesium 1.7 mg/dL (1.7-2.3) 08/29/25 22:27 Total Bilirubin 0.4 mg/dL (0.15-1.2) 08/29/25 19:18 AST 26 U/L (0-32) 08/29/25 19:18 ALT 21 U/L (0-33) 08/29/25 19:18 Alkaline Phosphatase 96 U/L (35-105) 08/29/25 19:18 Total Protein 9.0 g/dL (6.6-8.7) H D 08/29/25 19:18 Albumin 5.3 g/dL (3.5-5.2) H 08/29/25 19:18 Globulin 3.7 g/dL (1.3-4.6) 08/29/25 19:18 Lipase 17 U/L (13-60) 08/29/25 19:18 Urine Color Yellow (Yellow) 08/29/25 22:05 Urine Appearance Clear (CLEAR) 08/29/25 22:05 Urine pH 6.0 (5-7) 08/29/25 22:05 Ur Specific [place] 1.059 (1.005-1.030) H 08/29/25 22:05 Urine Protein 1+ (Negative) A 08/29/25 22:05 Urine Glucose (UA) Negative (Normal) 08/29/25 22:05 Urine Ketones Trace (Negative) 08/29/25 22:05 Urine Blood 1+ (Negative) A 08/29/25 22:05 Urine Nitrate Negative (Negative) 08/29/25 22:05 Urine Bilirubin Negative (Negative) 08/29/25 22:05 Urine Urobilinogen 0.2 mg/dL (Negative) 08/29/25 22:05 Ur Leukocyte Esterase Negative (Negative) 08/29/25 22:05 Urine RBC 0-2 /hpf (0-2) 08/29/25 22:05 Urine WBC 0-5 /hpf (0-5) 08/29/25 22:05 Ur Squamous Epith Cells 0-5 /hpf (0-5) 08/29/25 22:05 Amorphous Sediment Not Reportable 08/29/25 22:05 Urine Bacteria None seen /hpf (NONE) 08/29/25 22:05 Hyaline Casts 0-4 /lpf H 08/29/25 22:05 Salicylates 15.8 mg/dL (3-10) H 08/29/25 19:18 Urine Opiates Screen Positive ng/mL (Negative) H 08/29/25 22:05 Ur Barbiturates Screen Negative ng/mL (Negative) 08/29/25 22:05 Ur Phencyclidine Scrn Negative ng/mL (Negative) 08/29/25 22:05 Ur Amphetamines Screen Negative ng/mL (Negative) 08/29/25 22:05 U Benzodiazepines Scrn Positive ng/mL (Negative) H 08/29/25 22:05 Urine Cocaine Screen Negative ng/mL (Negative) 08/29/25 22:05 U Marijuana (THC) Screen Positive ng/mL (Negative) H 08/29/25 22:05 Ethyl Alcohol < 10 mg/dL (0-10) 08/29/25 19:18 Serum Ketones Negative (Negative) 08/29/25 19:18 Discharge Plan Discharge Patient Disposition: Admitted As Inpatient Admit Provider: Dave Kirk Clinical Impression: Gastroenteritis, Acute hypokalemia, High anion gap metabolic acidosis Condition: Stable Coding Level of Care Code ED Web Marketing Strategist for Stephen Triplett
[2025-08-29] MEDS: morphine 4 mg/mL SDV 1 mL IVP ×2 (19:49→22:20)
[2025-08-29] MEDS: LORazepam 2 mg/mL INJ 1 mL 0.5 MG IVP (19:49)
[2025-08-29] MEDS: ondansetron 2 mg/ML SDV 2 mL 4 MG IVP (19:50)
[2025-08-29 20:27] LABS: Lactic Sepsis W/Reflex 6.4 mmol/L (0.5-2.2)
[2025-08-29 20:50] LABS: Alanine Aminotransferase 21 U/L (0-33); Albumin Level 5.3 g/dL (3.5-5.2); Alkaline Phosphatase 96 U/L (35-105); Anion Gap 29.2 (5-19); Aspartate Amino Transferase 26 U/L (0-32); Blood Urea Nitrogen 18 mg/dL (6-20); Calcium 11.0 mg/dL (8.5-10.5); Carbon Dioxide 14 mmol/L (22-29); Chloride 99 mmol/L (98-107); Globulin 3.7 g/dL (1.3-4.6); Glucose 184 mg/dL (65-115); Lipase 17 U/L (13-60); Osmolality Calculated 295 mOsm/kg (285-295); Potassium 3.2 mmol/L (3.5-5.1); Sodium 139 mmol/L (136-145); Total Protein 9.0 g/dL (6.6-8.7)
[2025-08-29] MEDS: potassium chloride oral liq 20 mEq/15 mL UDC 40 MEQ PO (22:00)
[2025-08-29] MEDS: piperacillin-tazobactam 3.375 GM in sodium chloride 0.9% (plus) 50 ML IV (22:00)
[2025-08-29 22:05] LABS: ABG PCO2 32.7 mmHg (35-45); ABG PH Result 7.44 (7.35-7.45); Alveolar-Arterial Oxygen Gradi 4.2 mmHg (5-10); Arterial Blood Gas Hematocrit 39.3 % (37-47); Blood Gas Sample Site Brachial, left; Blood Gas Sample Type Arterial; Carboxyhemoglobin < 0.3 %THgb (0.4-20.1); Glucose Level-ABG 132.0 mg/dL (70-115); HCO3 ABG 22.0 mmol/L (22-26); Ionized Calcium Level - ABG 1.2 mmol/L (1.1-1.4); Methemoglobin 1.0 % (0.4-1.5); Oxygen Saturation ABG 95.3; PO2 ABG 76.2 mmHg (80.0-100.0); Potassium Level - ABG 2.9 mmol/L (3.5-5.0); Sodium Level - ABG 142.0 mmol/L (131-143)
[2025-08-29 22:07] VITALS: BP 173/95; PULSE 90; RESP 16; O2SAT 97
[2025-08-29 22:11] LABS: Reflex Lactate Order REFLEX LACTIC ORDERD
[2025-08-29 22:20] VITALS: RESP 16; O2SAT 97
[2025-08-29 22:21] LABS: Glucose Urine UA Negative (Normal); Nitrate Urine Negative (Negative)
[2025-08-29 22:26] LABS: Add Urine Microscopic? YES
[2025-08-29 22:38] LABS: Specific Gravity, Urine 1.059 (1.005-1.030)
[2025-08-29 22:53] LABS: Magnesium 1.7 mg/dL (1.7-2.3)
[2025-08-29 22:54] LABS: Lactic Acid level (Lactate) 1.5 mmol/L (0.5-2.2)
[2025-08-29 23:13] LABS: Ketone (Acetest) Serum Negative (Negative)
--- NOTE | 2025-08-29 23:31 | XRR_ITS ---
PROCEDURE INFORMATION: Exam: XR Chest Exam date and time: 08/29/2025 11:32 PM Age: 54 years old Clinical indication: Fever; Additional info: Fevers, leukocytosis TECHNIQUE: Imaging protocol: Radiologic exam of the chest. Views: 1 view. COMPARISON: CT lung screening [id number] 03/16/2024 11:15 AM FINDINGS: Lungs: Unremarkable. No consolidation. Pleural spaces: Unremarkable. No pleural effusion. No pneumothorax. Heart/Mediastinum: Unremarkable. No cardiomegaly. Bones/joints: Unremarkable. XR/XR chest 1V portable [id number] IMPRESSION: No acute findings.
[2025-08-29 23:55] LABS: Salicylate 15.8 mg/dL (3-10)
[2025-08-30] VITALS (11 sets, daily range): BP systolic 123–196; BP diastolic 76–94; PULSE 69–120; RESP 16–20; TEMP 36.8–37.1; O2SAT 94–96; BMI 25.9
[2025-08-30 00:12] LABS: Alcohol Level < 10 mg/dL (0-10)
--- NOTE | 2025-08-30 00:20 | P.HP_ITS ---
Providers/Chief Complaint 2 Primary Care Provider: Lara Paz MD Chief Complaint: N/V,fever,stomach pain,headache,palpitations,SOB History of Present Illness Olamide Au is a 54 year old female with a past medical history of migraine headaches, history of nephrolithiasis, who presents [facility] due to diarrhea, nausea, vomiting, abdominal pain, fevers, chills. Currently patient is alert oriented x 3, following all commands, she tells me that her symptoms started about 2 days ago with, abdominal pain, diffuse abdominal pain, nausea, vomiting, which subsequently got a bit better, so she did have pizza yesterday, but at the abdominal pain significantly returned, with diarrhea, with fevers, chills, she tells me her also had pizza and did not have any issues, no bloody or black stools Review of Systems 2 Const: Reports: fever(s) and chills Card: Denies: chest pain Resp: Denies: dyspnea GI: Reports: abdominal pain, nausea and vomiting Medications/Allergies Home Medications ?Medication ?Instructions ?Recorded ?Confirmed ?Last Taken ?Type metoprolol succinate 50 mg See Rx Instructions .Route 05/05/25 07/28/25 Unknown Rx tablet,extended release 24 hr .COMPLEX #90 tabs venlafaxine 75 mg tablet,extended 75 mg PO DAILY #90 t abs 07/28/25 07/28/25 Unknown Rx release 24 hr Allergies Allergy/AdvReac Type Severity Reaction Status Date / Time Alpha-Gal Allergy Unknown Verified 08/29/25 19:10 ([id number]-6,3-Gala topiramate (From Topamax) Allergy brain fog Verified 08/29/25 19:10 PFSH Acute 2 PFSH: Medical History History of kidney stones Migraine with aura Surgical History History of lumpectomy of right breast History of appendectomy History of cholecystectomy History of total hysterectomy with bilateral salpingo-oophorectomy (BSO) Family History Mother Cancer lung (smoke related) Father Hyperlipidemia Atrial fibrillation Lung disease asthma Social History Smoking and tobacco/nicotine status: current every day tobacco/nicotine user Quit status (tobacco/nicotine): has quit using Year quit tobacco: 2014 Former quit date comment: 2 ppd x 25 years Alcohol intake: never Substance/Drug Use: current Lives independently: Yes Household members: spouse Marital status: Number of children: 2 Number of grandchildren: 7 Current occupational status: employed 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 [employer] Josefina/Orthodoxy: [employer] Vitals/I&O/Wt Last Vital Signs Temp 98.0 F 08/29/25 19:05 Pulse 90 08/29/25 22:07 Resp 16 08/29/25 22:20 BP 173/95 08/29/25 22:07 Pulse Ox 97 08/29/25 22:20 O2 Del Method Room Air 08/29/25 22:07 08/29/25 08/29/25 08/30/25 14:59 22:59 06:59 Intake Total Balance Weight last 48 hrs Weight 63.503 kg Physical Exam 2 Const: COMMON NORMALS: no acute distress and patient oriented x3 Neck/C-Spine: COMMON NORMALS: no JVD Resp: COMMON NORMALS: normal respiratory effort, No retractions, No use of accessory muscles and clear to auscultation bilaterally AUSCULTATION: clear to auscultation bilaterally Cardio: COMMON NORMALS: no JVD, regular rate, regular rhythm, S1 normal heart sound present and S2 normal heart sound present RATE: regular rate RHYTHM: regular rhythm HEART SOUNDS: S1 normal heart sound present and S2 normal heart sound present GI: COMMON NORMALS: Normal to inspection, nondistended, normoactive bowel sounds present, Soft to palpation and non-tender PALPATION: Yes Soft to palpation Extremity: COMMON NORMALS: no pedal edema Neuro: COMMON NORMALS: patient oriented x3, CN's II-XII intact bilaterally, moves all extremities and no focal motor deficits Psych: COMMON NORMALS: mental status grossly normal Data 08/29/25 19:18 08/29/25 19:18 A&P Assessment and plan 1. High anion gap metabolic acidosis: 2. Abdominal pain: Plan: Abdominal pain - Etiology unclear - Could be gastroenteritis - Could be marijuana hyperemesis syndrome CT/CT abdomen pelvis w con* [id number] IMPRESSION: 1. No bowel obstruction or inflammatory process associated with the bowel. 2. No free air or significant free fluid in the abdomen or pelvis. 3. The appendix is not visualized but there are no secondary signs of acute appendicitis. Plan - Serial abdominal exams - Clear liquids - IV fluids - Pro-Last, CRP - Stool studies - Drug screen - Will monitor closely - Full code - Has alpha gal allergy, will use Arixtra Increased anion gap metabolic acidosis, lactic acidosis - IV fluids PDMP PDMP Reviewed: Not Reviewed Attestations 2 Medical Necessity Statement*: Patient requires hospitalization, patient with observation, for abdominal pain Diagnoses High anion gap metabolic acidosis E87.29 Abdominal pain R10.9
[2025-08-30 00:37] LABS: PCP Screen Urine Negative (Negative)
[2025-08-30 00:37] LABS: Alanine Aminotransferase 20 U/L (0-33); Albumin Level 4.3 g/dL (3.5-5.2); Alkaline Phosphatase 73 U/L (35-105); Anion Gap 15.9 (5-19); Aspartate Amino Transferase 27 U/L (0-32); Blood Urea Nitrogen 12 mg/dL (6-20); Calcium 9.1 mg/dL (8.5-10.5); Carbon Dioxide 19 mmol/L (22-29); Chloride 109 mmol/L (98-107); Globulin 2.4 g/dL (1.3-4.6); Glucose 132 mg/dL (65-115); Osmolality Calculated 292 mOsm/kg (285-295); Potassium 3.9 mmol/L (3.5-5.1); Sodium 140 mmol/L (136-145); Total Protein 6.7 g/dL (6.6-8.7)
[2025-08-30 01:21] LABS: Respiratory Syncytial Virus Ce NEGATIVE (Negative); SARS-CoV-2 PCR NEGATIVE (Negative)
[2025-08-30] MEDS: ondansetron 2 mg/ML SDV 2 mL 4 MG IVP ×4 (02:12→21:28)
[2025-08-30] MEDS: pantoprazole 40 mg SDV IVP (02:12)
[2025-08-30] MEDS: venlafaxine ER (24HR) 75 mg Capsule PO (05:08)
[2025-08-30] MEDS: metoclopramide 5 mg/mL SDV 2 mL IVP (05:08)
[2025-08-30] MEDS: piperacillin-tazobactam 3.375 GM in sodium chloride 0.9% (plus) 50 ML IV ×3 (05:08→19:54)
--- OUTSIDE RECORDS SUMMARY | 2025-08-30 05:36 | XMS_ITS | Patient Health Record ---
Author Organization [facility] Address [address] [place] [address] Care Team Providers Care Finisher Plate Name Role Phone JacksonLara patel Primary Care Provider UnavailLILIANA Sabillon Unavailable [phone] Allergies Allergen (clinical drug ingredient) Drug/Non Drug [...] with hydronephrosis (N13.2) Active confirmed Problem Leukocytosis (256979222) Leukocytosis (D72.829) Active confirmed Problem Kidney stone (49424888) Left nephrolithiasis (N20.0) Active confirmed Plan Of Treatment Pending Test Test Name Order Date Renal Ultrasound TERESA [id number] 03/01/2024 BASIC METABOLIC PANEL (87822) 03/01/2024 CBC (H/H, RBC, INDICES, WBC, PLT) (1759) 03/01/2024 Future Test Test Name Order Date [id number] KUB, X-Ray: Abdomen, Kidney, Urete r, bladder 08/19/2024 Insurance Providers Payer Name Payer Address Payer Phone Subscriber Number Group Number Insured Name Patient Relationship to Insured Coverage Start Date Coverage End Date [facility] [address] [address] [place], [place] [id number] Olamide Au Self - patient is the [...]
[2025-08-30 05:42] LABS: Hematocrit 34.3 % (36-47); Hemoglobin 11.60 g/dL (11.27-16.99); Mean Corpuscular HGB Conc 33.8 g/dL (30-55); Mean Corpuscular Hemoglobin 30.6 pg (27-33); Mean Corpuscular Volume 90.5 fl (85-98); Nucleated Red Blood Cells % 0 %; Platelet Count 328 10^3/cmm (157-399); Red Blood Count 3.79 10^6/uL (3.85-5.65); White Blood Count 21.00 10^3/uL (3.29-11.43)
[2025-08-30 06:02] LABS: Lactic Sepsis W/Reflex 0.7 mmol/L (0.5-2.2)
[2025-08-30 06:03] LABS: Alanine Aminotransferase 32 U/L (0-33); Albumin Level 4.3 g/dL (3.5-5.2); Alkaline Phosphatase 77 U/L (35-105); Anion Gap 15.8 (5-19); Aspartate Amino Transferase 39 U/L (0-32); Blood Urea Nitrogen 12 mg/dL (6-20); Calcium 9.5 mg/dL (8.5-10.5); Carbon Dioxide 20 mmol/L (22-29); Chloride 109 mmol/L (98-107); Globulin 2.7 g/dL (1.3-4.6); Glucose 126 mg/dL (65-115); Magnesium 1.8 mg/dL (1.7-2.3); Osmolality Calculated 293 mOsm/kg (285-295); Potassium 3.8 mmol/L (3.5-5.1); Sodium 141 mmol/L (136-145); Total Protein 7.0 g/dL (6.6-8.7)
[2025-08-30 06:12] LABS: Estmated Average Glucose 100; Hemoglobin A1C 5.1 % (4.0-6.0); Procalcitonin 0.06 ng/mL (0-0.5); Thyroid Stimulating Hormone 0.91 uIU/mL (0.27-4.20)
[2025-08-30 06:23] LABS: Cholesterol 174 mg/dL (0-200); HDL Cholesterol 54 mg/dL (60-100); Triglycerides 64 mg/dL (0-150)
--- NOTE | 2025-08-30 07:41 | P.PN_ITS ---
Subjective 2 Subjective: Patient is a very pleasant 54-year-old female seen and examined at bedside on hospital rounds today. Patient sitting up in bed with continued nausea and abdominal bloating. Patient states that her vomiting has improved and she has not had a bowel movement since she has been here. Vital signs are stable, mildly elevated blood pressure. In review of labs WBC 21.00, improved lactic acid 0.7, elevated CK 302. Will continue IV fluid hydration, antiemetics, antibiotics, and supportive measures. Vitals/I&O/Wt Last Vital Signs Temp 98.3 F 08/30/25 03:45 Pulse 71 08/30/25 03:45 Resp 16 08/30/25 03:45 BP 196/94 08/30/25 03:45 Pulse Ox 95 08/30/25 03:45 O2 Del Method Room Air 08/30/25 03:45 08/29/25 08/30/25 08/30/25 22:59 06:59 14:59 Intake Total / 120 / 2074. Balance 120 2074. Weight last 48 hrs Weight 62.55 kg Weight 64.41 kg Weight 63.503 kg Physical Exam 2 Const: COMMON NORMALS: no acute distress and patient oriented x3 Neck/C-Spine: COMMON NORMALS: no JVD Resp: COMMON NORMALS: normal respiratory effort, No retractions, No use of accessory muscles and clear to auscultation bilaterally AUSCULTATION: clear to auscultation bilaterally Cardio: COMMON NORMALS: no JVD, regular rate, regular rhythm, S1 normal heart sound present and S2 normal heart sound present RATE: regular rate RHYTHM: regular rhythm HEART SOUNDS: S1 normal heart sound present and S2 normal heart sound present GI: COMMON NORMALS: Normal to inspection, nondistended, normoactive bowel sounds present, Soft to palpation and non-tender PALPATION: Yes Soft to palpation Extremity: COMMON NORMALS: no pedal edema Neuro: COMMON NORMALS: patient oriented x3, CN's II-XII intact bilaterally, moves all extremities and no focal motor deficits Psych: COMMON NORMALS: mental status grossly normal Data 08/30/25 05:33 08/30/25 05:33 A&P Assessment and plan 1. High anion gap metabolic acidosis: 2. Abdominal pain: 3. Gastroenteritis: 4. Marijuana use, continuous: 5. Migraine with aura: Plan: Abdominal pain Gastroenteritis - Continue IV Zosyn - Clear liquid diet, advance as tolerated - Pending C-diff and stool studies - Supportive measures Marijuana use - Advise cessation with nausea/vomiting Migraine with aura - Migraine cocktail (reglan, toradol, benadryl, and NS fluids) - Supportive measures Metabolic acidosis Lactic acidosis - secondary to volume depletion - improved lactic - Continue IV fluid hydration Depression - Continue Effexor Alpha gal syndrome - Continue Arixtra Code Status: Full Code VTE PPX: SCD's PDMP PDMP Reviewed: Not Reviewed Attestations 2 Medical Necessity Statement*: Patient requires hospitalization, patient with observation, for continued management of abdominal pain/gastroenteritis, volume depletion with unclear ability to maintain oral hydration. Coding Level of Care Code Acute Code for Chg Fwd Diagnoses High anion gap metabolic acidosis E87.29 Abdominal pain R10.9 Gastroenteritis K52.9 Marijuana use, continuous F12.90 Migraine with aura G43.109
[2025-08-30] MEDS: diphenhydrAMINE 50 mg/mL SDV 1mL 25 MG IVP ×3 (09:06→20:51)
[2025-08-30] MEDS: hyDRALAzine 20 mg/mL INJ 1 mL 10 MG IVP (20:10)
[2025-08-30] MEDS: metoprolol succinate ER (24 HR) 50 mg Tablet PO (21:23)
[2025-08-31] MEDS: pantoprazole 40 mg SDV IVP (02:21)
[2025-08-31 04:00] VITALS: BP 174/89; PULSE 85; RESP 18; TEMP 36.9; O2SAT 95
[2025-08-31] MEDS: venlafaxine ER (24HR) 75 mg Capsule PO (04:54)
[2025-08-31] MEDS: piperacillin-tazobactam 3.375 GM in sodium chloride 0.9% (plus) 50 ML IV ×3 (04:54→21:33)
[2025-08-31 06:26] LABS: Alanine Aminotransferase 43 U/L (0-33); Albumin Level 4.2 g/dL (3.5-5.2); Alkaline Phosphatase 79 U/L (35-105); Anion Gap 19.9 (5-19); Aspartate Amino Transferase 40 U/L (0-32); Blood Urea Nitrogen 9 mg/dL (6-20); Calcium 9.2 mg/dL (8.5-10.5); Carbon Dioxide 20 mmol/L (22-29); Chloride 105 mmol/L (98-107); Globulin 2.6 g/dL (1.3-4.6); Glucose 106 mg/dL (65-115); Osmolality Calculated 293 mOsm/kg (285-295); Sodium 142 mmol/L (136-145); Total Protein 6.8 g/dL (6.6-8.7)
[2025-08-31 06:31] LABS: Potassium 2.9 mmol/L (3.5-5.1)
[2025-08-31 08:10] VITALS: BP 175/97; PULSE 64; RESP 16; TEMP 36.8; O2SAT 95
[2025-08-31 08:25] LABS: Hematocrit 35.5 % (36-47); Hemoglobin 12.10 g/dL (11.27-16.99); Mean Corpuscular HGB Conc 34.1 g/dL (30-55); Mean Corpuscular Hemoglobin 30.6 pg (27-33); Mean Corpuscular Volume 89.6 fl (85-98); Nucleated Red Blood Cells % 0 %; Platelet Count 316 10^3/cmm (157-399); Red Blood Count 3.96 10^6/uL (3.85-5.65); White Blood Count 16.21 10^3/uL (3.29-11.43)
[2025-08-31] MEDS: ondansetron 2 mg/ML SDV 2 mL 4 MG IVP (09:15)
--- NOTE | 2025-08-31 09:24 | P.PN_ITS ---
Subjective 2 Subjective: Patient is a very pleasant 54-year-old female seen and examined at bedside on hospital rounds today. Patient sitting up in bed with continued nausea and vomiting, abdominal bloating and pain. Patient denies new or worsening symptoms. Improved WBC 16.21, but potassium 2.9 -Will continue to replenish. Patient states that headache went away yesterday, but it was back this morning. Will continue IV antibiotics, fluid hydration, and electrolyte management inpatient. Vitals/I&O/Wt Last Vital Signs Temp 98.3 F 08/31/25 08:10 Pulse 64 08/31/25 08:10 Resp 16 08/31/25 08:10 BP 175/97 08/31/25 08:10 Pulse Ox 95 08/31/25 08:10 O2 Del Method Room Air 08/31/25 08:10 08/30/25 08/31/25 08/31/25 22:59 06:59 14:59 Intake Total 170 / 2340 1350 / 3690 841.667 / 841.667 Balance 170 / 2340 1350 / 3690 841.667 / 841.667 Weight last 48 hrs Weight 64.467 kg Weight 62.55 kg Weight 64.41 kg Weight 63.503 kg Physical Exam 2 Const: COMMON NORMALS: no acute distress and patient oriented x3 Neck/C-Spine: COMMON NORMALS: no JVD Resp: COMMON NORMALS: normal respiratory effort, No retractions, No use of accessory muscles and clear to auscultation bilaterally AUSCULTATION: clear to auscultation bilaterally Cardio: COMMON NORMALS: no JVD, regular rate, regular rhythm, S1 normal heart sound present and S2 normal heart sound present RATE: regular rate RHYTHM: regular rhythm HEART SOUNDS: S1 normal heart sound present and S2 normal heart sound present GI: COMMON NORMALS: Soft to palpation PALPATION: Yes Soft to palpation and Yes Other GI palpation findings present (Generalized tenderness, bloating) Extremity: COMMON NORMALS: no pedal edema Neuro: COMMON NORMALS: patient oriented x3, CN's II-XII intact bilaterally, moves all extremities and no focal motor deficits Psych: COMMON NORMALS: mental status grossly normal Data 08/31/25 05:41 08/31/25 09:03 A&P Assessment and plan 1. High anion gap metabolic acidosis: 2. Abdominal pain: 3. Gastroenteritis: 4. Marijuana use, continuous: 5. Migraine with aura: Plan: Abdominal pain Gastroenteritis - Continue IV Zosyn - Clear liquid diet, advance as tolerated - Pending C-diff and stool studies - Supportive measures Marijuana use - Advise cessation with nausea/vomiting Migraine with aura - Migraine cocktail yesterday (reglan, toradol, benadryl, and NS fluids) - Continue Supportive measures Metabolic acidosis Lactic acidosis - secondary to volume depletion - improved lactic - Continue IV fluid hydration Depression - Continue Effexor Alpha gal syndrome - Continue Arixtra Code Status: Full Code VTE PPX: SCD's PDMP PDMP Reviewed: Not Reviewed Attestations 2 Medical Necessity Statement*: Moving inpatient, requires more than 2 midnights for continued management of abdominal pain/gastroenteritis, volume depletion with unclear ability to maintain oral hydration. Coding Level of Care Code 31915 Diagnoses High anion gap metabolic acidosis E87.29 Abdominal pain R10.9 Gastroenteritis K52.9 Marijuana use, continuous F12.90 Migraine with aura G43.109
[2025-08-31 09:34] LABS: Potassium 3.2 mmol/L (3.5-5.1)
--- NOTE | 2025-08-31 10:08 | PC.CHAP ---
Pastoral Care Encounter/Spiritual Assessment Type of Contact [] Declined bakery clerk visit [] Patient/Family/Request visit [] Outpatient visit [] Follow-up visit [] Physician referral [] Code/Alert [x] Routine visit [] Staff referral [] Actively dying [] Patient sleeping [] Family support [] [] Out of room [] Palliative care [] [] Receiving care in room [] Pre-surgical visit [] Trauma [] Long length of stay [] ICU visit [] Other: Relational/Emotional Strength [x] Patient feels connected with others/family/visitors/staff [] Distress [] Loneliness/isolation [] Abandonment Spirituality of Patient [x] Person of Josefina [] Attends Mandaen of their Josefina [x] Believes in Prayer [] Reads Bible or Rastafarian materials [] There are Spiritual issues to be addressed Survey Statistician Interventions [x] Prayer [x] Active listening [x] Non-anxious presence [x] Spiritual/emotional support [] Crisis/trauma care [] Spiritual counseling [] Bereavement support [] Provided bereavement packet [] Provided Bible/devotional materials [] Provided toy/stuffed animal, coloring book to patient or family member [] Provided Communion [] Anointing/[place] [] Salvation [x] Completed spiritual assessment [] Other: Impact on Illness or Injury [] Angry [] Fearful [] Anxious [] Often cries [] Exhaustion [] Unable to work [] Unable to attend buddhism [] Unable to walk/stand [] Unable to read [] Unable to drive [] Unable to eat/drink [] Unable to sleep [] Unable to be with family [] Patient intubated [] Other: Summary Time spent with patient 5 min
[2025-08-31 11:46] VITALS: RESP 16
[2025-08-31] MEDS: morphine 4 mg/mL SDV 1 mL 2 MG IVP (11:46)
[2025-08-31 12:04] VITALS: BP 177/82; PULSE 75; RESP 18; TEMP 36.9; O2SAT 96
[2025-08-31] MEDS: diphenhydrAMINE 50 mg/mL SDV 1mL 25 MG IVP ×2 (12:14→19:50)
[2025-08-31 16:00] VITALS: BP 192/105; PULSE 90; RESP 16; TEMP 36.6; O2SAT 93
[2025-08-31 19:45] VITALS: BP 179/93; PULSE 83; RESP 18; TEMP 36.9; O2SAT 93
[2025-08-31] MEDS: metoclopramide 5 mg/mL SDV 2 mL IVP (19:51)
[2025-08-31] MEDS: metoprolol succinate ER (24 HR) 50 mg Tablet PO (21:40)
[2025-09-01] VITALS: BP 176/96; PULSE 77; RESP 17; TEMP 37.2; O2SAT 91
[2025-09-01] MEDS: pantoprazole 40 mg SDV IVP (01:31)
[2025-09-01] MEDS: piperacillin-tazobactam 3.375 GM in sodium chloride 0.9% (plus) 50 ML IV (03:46)
[2025-09-01] MEDS: venlafaxine ER (24HR) 75 mg Capsule PO (04:57)
[2025-09-01 05:57] VITALS: BP 173/100; PULSE 77; RESP 16; TEMP 36.9; O2SAT 94
[2025-09-01] MEDS: diphenhydrAMINE 50 mg/mL SDV 1mL 25 MG IVP (07:46)
[2025-09-01] MEDS: ondansetron 2 mg/ML SDV 2 mL 4 MG IVP (07:46)
[2025-09-01 07:47] VITALS: RESP 16
[2025-09-01] MEDS: morphine 4 mg/mL SDV 1 mL 2 MG IVP (07:47)
[2025-09-01 07:58] VITALS: BP 162/98; PULSE 86; RESP 18; TEMP 36.7; O2SAT 95
[2025-09-01 08:49] LABS: Hematocrit 38.7 % (36-47); Hemoglobin 13.00 g/dL (11.27-16.99); Mean Corpuscular HGB Conc 33.6 g/dL (30-55); Mean Corpuscular Hemoglobin 30.5 pg (27-33); Mean Corpuscular Volume 90.8 fl (85-98); Nucleated Red Blood Cells % 0 %; Platelet Count 255 10^3/cmm (157-399); Red Blood Count 4.26 10^6/uL (3.85-5.65); White Blood Count 13.23 10^3/uL (3.29-11.43)
--- NOTE | 2025-09-01 09:07 | PM.DCS ---
Discharge Providers Date of Admission: 08/30/25 00:04 Date of Discharge: September 01, 2025 Attending Provider at Admission: Dave Kirk MD Attending Provider at Discharge: Edith Abdullahi NP Primary Care Provider: Lara Paz MD Diagnoses at Discharge Discharge Diagnosis 1. High anion gap metabolic acidosis: 2. Abdominal pain: 3. Gastroenteritis: 4. Marijuana use, continuous: 5. Migraine with aura: Reason for Visit Reason for Visit: N/V,fever,stomach pain,headache,palpitations,SOB Brief History: Admission: Olamide Au is a 54 year old female with a past medical history of migraine headaches, history of nephrolithiasis, who presents [facility] due to diarrhea, nausea, vomiting, abdominal pain, fevers, chills. Currently patient is alert oriented x 3, following all commands, she tells me that her symptoms started about 2 days ago with, abdominal pain, diffuse abdominal pain, nausea, vomiting, which subsequently got a bit better, so she did have pizza yesterday, but at the abdominal pain significantly returned, with diarrhea, with fevers, chills, she tells me her also had pizza and did not have any issues, no bloody or black stools. Hospital Course Hospital Course Abdominal pain Gastroenteritis - Continue IV Zosyn - Clear liquid diet, advance as tolerated - Pending C-diff and stool studies - Supportive measures Marijuana use - Advise cessation with nausea/vomiting Migraine with aura - Migraine cocktail yesterday (reglan, toradol, benadryl, and NS fluids) - Continue Supportive measures Metabolic acidosis Lactic acidosis - secondary to volume depletion - improved lactic - Continue IV fluid hydration Depression - Continue Effexor Alpha gal syndrome - Continue Arixtra Patient was admitted with gastroenteritis, elevated WBC which was trending down at time of discharge, treated with IV Zosyn, transitions to oral antibiotics Cipro and Flagyl at discharge. Patient had nausea and vomiting with abdominal pain, diarrhea but had resolved during admission. Patient is referred to outpatient to gastroenterology, recommendations for EGD and colonoscopy once able. Electrolytes replenished during hospitalization. Metabolic acidosis, lactic acidosis resolved with volume repletion. Patient tolerating oral intake. Comorbidities depression, alpha gal managed with home dosing of medications. Patient does have chronic migraines, given supportive measures and migraine cocktail while admitted. Patient is advised to follow-up with primary care provider in 1 to 2 days for continued outpatient management and monitoring. Patient discharged in stable condition, all questions and concerns were addressed with the patient at time of discharge. Physical Exam Const: COMMON NORMALS: no acute distress and patient oriented x3 Neck/C-Spine: COMMON NORMALS: no JVD Resp: COMMON NORMALS: normal respiratory effort, No retractions, No use of accessory muscles and clear to auscultation bilaterally AUSCULTATION: clear to auscultation bilaterally Cardio: COMMON NORMALS: no JVD, regular rate, regular rhythm, S1 normal heart sound present and S2 normal heart sound present RATE: regular rate RHYTHM: regular rhythm HEART SOUNDS: S1 normal heart sound present and S2 normal heart sound present GI: COMMON NORMALS: Normal to inspection, nondistended, normoactive bowel sounds present and Soft to palpation PALPATION: Yes Soft to palpation Extremity: COMMON NORMALS: no pedal edema Neuro: COMMON NORMALS: patient oriented x3, CN's II-XII intact bilaterally, moves all extremities and no focal motor deficits Psych: COMMON NORMALS: mental status grossly normal Discharge Data Studies Completed and Pending Completed Studies During Hospitalization Category Date Time Status CT abdomen pelvis w con* [id number] Urgent Cat Scan 08/29/25 19:38 Completed XR chest 1V portable [id number] Stat Exams 08/29/25 23:31 Completed Pending at discharge Category Date Time Status Blood Culture Stat Lab 08/29/25 20:55 Received C.Diff PCR (Lab) Routine Lab 08/30/25 01:25 Ordered CBC Auto Diff [Complete Blood Count w/Auto] AM LABS Lab 09/02/25 07:55 Ordered Comprehensive Metabolic Panel AM LABS Lab 09/01/25 08:36 Received Comprehensive Metabolic Panel AM LABS Lab 09/02/25 07:55 Ordered Immunochemical Fecal OCB Routine Lab 08/30/25 01:25 Ordered Lactoferrin Routine Lab 08/30/25 01:25 Ordered Magnesium AM LABS Lab 09/01/25 08:36 Received Magnesium AM LABS Lab 09/02/25 07:55 Ordered OVA and Parasites, Conc and PE Routine Lab 08/30/25 01:25 Ordered Salmonella / Shigella / Campy Routine Lab 08/30/25 01:25 Ordered Radiology Impressions Abdomen/Pelvis CT 08/29/25 19:38 IMPRESSION: 1. No bowel obstruction or inflammatory process associated with the bowel. 2. No free air or significant free fluid in the abdomen or pelvis. 3. The appendix is not visualized but there are no secondary signs of acute appendicitis. Chest X-Ray 08/29/25 23:31 IMPRESSION: No acute findings. Laboratory Results WBC 13.23 10^3/uL (3.29-11.43) H 09/01/25 08:36 RBC 4.26 10^6/uL (3.85-5.65) 09/01/25 08:36 Hgb 13.00 g/dL (11.27-16.99) 09/01/25 08:36 Hct 38.7 % (36-47) 09/01/25 08:36 MCV 90.8 fl (85-98) 09/01/25 08:36 MCH 30.5 pg (27-33) 09/01/25 08:36 MCHC 33.6 g/dL (30-55) 09/01/25 08:36 RDW 13.6 % (12.1-15.1) 09/01/25 08:36 Plt Count 255 10^3/cmm (157-399) 09/01/25 08:36 MPV 10.4 fL (7.4-10.4) 09/01/25 08:36 Neut % (Auto) 67.3 % 09/01/25 08:36 Lymph % (Auto) 22.1 % 09/01/25 08:36 Gibson % (Auto) 8.7 % 09/01/25 08:36 Eos % (Auto) 0.9 % 09/01/25 08:36 Baso % (Auto) 0.5 % 09/01/25 08:36 Neut # (Auto) 8.92 10^3/uL (1.8-7.7) H 09/01/25 08:36 Lymph # (Auto) 2.9 10^3/uL (0.8-4.8) 09/01/25 08:36 Gibson # (Auto) 1.2 10^3/uL (0.2-0.9) H 09/01/25 08:36 Eos # (Auto) 0.1 10^3/uL (0.0-0.8) 09/01/25 08:36 Baso # (Auto) 0.1 10^3/uL (0.0-0.1) 09/01/25 08:36 Nucleated RBC % (auto) 0 % 09/01/25 08:36 Nucleated RBCs # 0.0 /100WBC 09/01/25 08:36 Specimen Type Arterial 08/29/25 21:55 Sample Site Brachial, left 08/29/25 21:55 ABG pH 7.44 (7.35-7.45) 08/29/25 21:55 ABG pCO2 32.7 mmHg (35-45) L 08/29/25 21:55 ABG pO2 76.2 mmHg (80.0-100.0) L 08/29/25 21:55 ABG HCO3 22.0 mmol/L (22-26) 08/29/25 21:55 ABG O2 Saturation 95.3 08/29/25 21:55 ABG Base Excess -1.5 mmol/L (-2.0-2.0) 08/29/25 21:55 Jessee Test N/a 08/29/25 21:55 A-a O2 Gradient 4.2 mmHg (5-10) L 08/29/25 21:55 Hematocrit 39.3 % (37-47) 08/29/25 21:55 Hgb O2 Saturation 94.3 % (95-100) L 08/29/25 21:55 Carboxyhemoglobin < 0.3 %THgb (0.4-20.1) L 08/29/25 21:55 Methemoglobin 1.0 % (0.4-1.5) 08/29/25 21:55 Total Hemoglobin 12.8 g/dL (12-16) 08/29/25 21:55 Sodium 142.0 mmol/L (131-143) 08/29/25 21:55 Potassium 2.9 mmol/L (3.5-5.0) L 08/29/25 21:55 Glucose 132.0 mg/dL (70-115) H 08/29/25 21:55 Ionized Calcium 1.2 mmol/L (1.1-1.4) 08/29/25 21:55 O2 Delivery Device Room air 08/29/25 21:55 Parole Or Probation Officer ID [email or web address] 08/29/25 21:55 Sodium 142 mmol/L (136-145) 08/31/25 05:41 Potassium 3.2 mmol/L (3.5-5.1) L 08/31/25 09:03 Chloride 105 mmol/L (98-107) 08/31/25 05:41 Carbon Dioxide 20 mmol/L (22-29) L 08/31/25 05:41 Anion Gap 19.9 (5-19) H 08/31/25 05:41 BUN 9 mg/dL (6-20) 08/31/25 05:41 Creatinine 0.6 mg/dL (0.5-0.9) 08/31/25 05:41 GFR Calculation 105.0 mL/min (90-130) 08/31/25 05:41 Glucose 106 mg/dL (65-115) 08/31/25 05:41 Estimat Average Glucose 100 08/30/25 05:33 Hemoglobin A1c 5.1 % (4.0-6.0) 08/30/25 05:33 Calculated Osmolality 293 mOsm/kg (285-295) 08/31/25 05:41 Lactic Acid 0.7 mmol/L (0.5-2.2) 08/30/25 05:33 Lactic Acid (Sepsis) 1.5 mmol/L (0.5-2.2) 08/29/25 22:27 Calcium 9.2 mg/dL (8.5-10.5) 08/31/25 05:41 Phosphorus 2.7 mg/dL (2.5-4.5) 08/30/25 05:33 Magnesium 1.8 mg/dL (1.7-2.3) 08/30/25 05:33 Total Bilirubin 0.5 mg/dL (0.15-1.2) 08/31/25 05:41 AST 40 U/L (0-32) H 08/31/25 05:41 ALT 43 U/L (0-33) H 08/31/25 05:41 Alkaline Phosphatase 79 U/L (35-105) 08/31/25 05:41 Creatine Kinase 302 U/L (26-192) H 08/30/25 05:33 C-Reactive Protein 12.9 mg/L (0.0-4.9) H 08/31/25 05:41 Total Protein 6.8 g/dL (6.6-8.7) 08/31/25 05:41 Albumin 4.2 g/dL (3.5-5.2) 08/31/25 05:41 Globulin 2.6 g/dL (1.3-4.6) 08/31/25 05:41 Triglycerides 64 mg/dL (0-150) 08/30/25 05:33 Cholesterol 174 mg/dL (0-200) 08/30/25 05:33 LDL Cholesterol, Calc 107 mg/dL (50-129) 08/30/25 05:33 HDL Cholesterol 54 mg/dL (60-100) L 08/30/25 05:33 LDL/HDL Ratio 1.98 RATIO (0.00-3.22) 08/30/25 05:33 Cholesterol/HDL Ratio 3.22 mg/dL (0.0-4.40) 08/30/25 05:33 Lipase 17 U/L (13-60) 08/29/25 19:18 Procalcitonin 0.06 ng/mL (0-0.5) 08/30/25 05:33 TSH 0.91 uIU/mL (0.27-4.20) 08/30/25 05:33 Urine Color Yellow (Yellow) 08/29/25 22:05 Urine Appearance Clear (CLEAR) 08/29/25 22:05 Urine pH 6.0 (5-7) 08/29/25 22:05 Ur Specific [place] 1.059 (1.005-1.030) H 08/29/25 22:05 Urine Protein 1+ (Negative) A 08/29/25 22:05 Urine Glucose (UA) Negative (Normal) 08/29/25 22:05 Urine Ketones Trace (Negative) 08/29/25 22:05 Urine Blood 1+ (Negative) A 08/29/25 22:05 Urine Nitrate Negative (Negative) 08/29/25 22:05 Urine Bilirubin Negative (Negative) 08/29/25 22:05 Urine Urobilinogen 0.2 mg/dL (Negative) 08/29/25 22:05 Ur Leukocyte Esterase Negative (Negative) 08/29/25 22:05 Urine RBC 0-2 /hpf (0-2) 08/29/25 22:05 Urine WBC 0-5 /hpf (0-5) 08/29/25 22:05 Ur Squamous Epith Cells 0-5 /hpf (0-5) 08/29/25 22:05 Amorphous Sediment Not Reportable 08/29/25 22:05 Urine Bacteria None seen /hpf (NONE) 08/29/25 22:05 Hyaline Casts 0-4 /lpf H 08/29/25 22:05 Salicylates 15.8 mg/dL (3-10) H 08/29/25 19:18 Urine Opiates Screen Positive ng/mL (Negative) H 08/29/25 22:05 Ur Barbiturates Screen Negative ng/mL (Negative) 08/29/25 22:05 Ur Phencyclidine Scrn Negative ng/mL (Negative) 08/29/25 22:05 Ur Amphetamines Screen Negative ng/mL (Negative) 08/29/25 22:05 U Benzodiazepines Scrn Positive ng/mL (Negative) H 08/29/25 22:05 Urine Cocaine Screen Negative ng/mL (Negative) 08/29/25 22:05 U Marijuana (THC) Screen Positive ng/mL (Negative) H 08/29/25 22:05 Ethyl Alcohol < 10 mg/dL (0-10) 08/29/25 19:18 Serum Ketones Negative (Negative) 08/29/25 19:18 Influenza A (PCR) Negative (Negative) 08/30/25 00:40 Influenza Type B (PCR) Negative (Negative) 08/30/25 00:40 RSV (PCR) Negative (Negative) 08/30/25 00:40 SARS-CoV-2 (PCR) Negative (Negative) 08/30/25 00:40 Vitals Last Vital Signs Temp 98.1 F 09/01/25 07:58 Pulse 86 09/01/25 07:58 Resp 18 09/01/25 07:58 BP 162/98 09/01/25 07:58 Pulse Ox 95 09/01/25 07:58 O2 Del Method Room Air 09/01/25 07:58 Discharge Plan Discharge Patient Disposition: Home Condition: Stable Prescriptions: New potassium chloride [Klor-Con M20] 20 mEq Tablet,Er Particles/Crystals 40 meq PO DAILY 7 Days Qty: 7 0RF dicyclomine 10 mg Capsule 10 mg PO QID 7 Days Qty: 28 0RF ciprofloxacin HCl 500 mg tablet 500 mg PO BID 5 Days Qty: 10 0RF promethazine 25 mg suppository 25 mg MS Q6H PRN (Reason: nausea and vomiting) Qty: 12 0RF metronidazole 500 mg tablet 500 mg PO BID 5 Days Qty: 10 0RF ondansetron 4 mg tablet,disintegrating 4 mg PO Q8H 3 Days Qty: 9 0RF Continued metoprolol succinate 50 mg tablet extended release 24 hr See Rx Instructions .ROUTE .COMPLEX Qty: 90 3RF Dose Instruction: Take 1 tablet by mouth once daily Rx Instructions: Take 1 tablet by mouth once daily venlafaxine 75 mg tablet extended release 24hr 75 mg PO DAILY Qty: 90 0RF Evon 60 mg PO DAILY Rx Instructions: otc Excedrin Migraine 250 mg PO QID PRN (Reason: Headache) Discharge Order = DC NOW: Discharge Order (Routine); Ordered 09/01/25 Ordered By: Edith Abdullahi Referrals: [facility] [Outside] - 3 weeks Referral Note: Colonoscopy/Endoscopy We have notified your physician's clinic of the need for a follow-up appointment to be scheduled. If you have not heard from them within the next 2 business days, please call them directly. Lara Paz MD [Primary Care Provider, [facility]] - 09/06/25 11:20 am Referral Note: Discharge Diet: Advance as tolerated Discharge Activity: Resume usual activity Patient Instructions: Abdominal Pain (ED), Opioid Safety, Patient Portal & Fermin Instructions Discharge Attestations Time Spent in Discharge Care*: greater than 30 min Specific Discharge Activities: educating patient, discussing with case specialist/social workers/dc planners, documenting/other paperwork and evaluating patient/reviewing data Quality Metrics Clinical Quality Measures [ No reported AMI, CVA or VTE this stay] Coding Level of Care Code 68782 Diagnoses High anion gap metabolic acidosis E87.29 Abdominal pain R10.9 Gastroenteritis K52.9 Marijuana use, continuous F12.90 Migraine with aura G43.109
[2025-09-01 09:35] LABS: Alanine Aminotransferase 42 U/L (0-33); Albumin Level 4.0 g/dL (3.5-5.2); Alkaline Phosphatase 94 U/L (35-105); Aspartate Amino Transferase 28 U/L (0-32); Blood Urea Nitrogen 12 mg/dL (6-20); Calcium 9.4 mg/dL (8.5-10.5); Carbon Dioxide 20 mmol/L (22-29); Chloride 104 mmol/L (98-107); Globulin 3.1 g/dL (1.3-4.6); Glucose 116 mg/dL (65-115); Magnesium 1.9 mg/dL (1.7-2.3); Osmolality Calculated 287 mOsm/kg (285-295); Sodium 138 mmol/L (136-145); Total Protein 7.1 g/dL (6.6-8.7)
[2025-09-01 09:37] LABS: Anion Gap 17.6 (5-19); Potassium 3.6 mmol/L (3.5-5.1)
[2025-09-01 10:45] VITALS: BP 162/98; PULSE 86; RESP 18; TEMP 36.7; O2SAT 95
== END 2025-09-01 10:45 | disposition home or self-care (01) | DRG 392 ==
LOC: ER 23:37 → MEDSURG 08-30 01:06
PROVIDERS: Admitting Provider Family Medicine; Emergency Provider Physician Assistant; PCP Family Medicine; Visit Provider Registered Nurse
DX: K52.9 Noninfective gastroenteritis and colitis, unspecified (principal); E87.20 Acidosis, unspecified; F12.90 Cannabis use, unspecified, uncomplicated; G43.E09 Chronic migraine with aura, not intractable, without status migrainosus; F32.A Depression, unspecified; F17.210 Nicotine dependence, cigarettes, uncomplicated; I10 Essential (primary) hypertension; R00.0 Tachycardia, unspecified; E87.6 Hypokalemia; Z91.014 Allergy to mammalian meats
CPT/HCPCS: 36415; 36600; 71045; 74177; 80051; 80053; 80061; 80306; 80307; 81001; 82009; 82330; 82550; 82805; 83036; 83605; 83690; 83735; 84100; 84132; 84145; 84443; 85025; 86140; 87040; 87637; 93005; 94664; 96372; G0378; J0360; J0780; J1200; J1652; J1885; J2060; J2270; J2405; J2470; J2543; J2765; J7030; J9999

== ENCOUNTER 2025-09-05 05:19 | Inpatient (IN) | payer OTHER, SELFPAY ==
--- OUTSIDE RECORDS SUMMARY | 2024-09-08 09:30 | XMS_ITS ---
Author Organization [employer], [employer] Address [address] [facility] [place] [address] Care Team Providers Care Freelance Translator Name Role Phone Lara Paz Primary Care Provider Unavailab LILIANA Zaldivar Unavailable [phone] REASON FOR VISIT 6 mo w/ ua/pvr/kub [...] Active Encounters Encounter Location Date Provider Diagnosis [facility] [address] [place] [address] 09/08/2024 LILIANA HOGAN Plan Of Treatment No Information Progress Notes * Elliot AGUEROOB: 2 (54 yo F)Acc No.[id number]:09/08/2024 Progress Notes Patient: Olamide WALDRON Provider: ROMEO Rocha :1970 A ge:53 Y S ex:Female Date:09/08/2024 Address:[address] [place] [address], [place], [id number] Pcp:Lara Paz Subjective: * Chief Complaints: [...] Electronic signature of LILIANA HOGAN APRN on 09/06/2025 at 05:21 AM YARN WASHER Sign off status: Pending * Provider: Krystal Hogan APRN-[facility] Date: 11/08/2023 Generated for Simba sepulveda/Pierre/Sophie on: 11/06/2024 05:21 AM YARN WASHER
[2025-09-05] VITALS (15 sets, daily range): BP systolic 140–216; BP diastolic 88–114; PULSE 68–131; RESP 12–21; TEMP 36.8–37.3; O2SAT 94–99; BMI 25.0
--- NOTE | 2025-09-05 04:34 | ECG_ITS ---
[facility] Date: 2025-09-05 Pat Name: Olamide Au Department: Room: Gender: Female Associate Media Director: : 1970 Requested By: Valerio Gonzalez Order Number: [id number] Aleks MD: Angela Xiao M.D. Measurements Intervals Davis Rate: 69 P: 81 PA: 153 QRS: 81 QRSD: 99 T: 68 QT: 401 QTc: 431 Interpretive Statements SINUS RHYTHM WITH SINUS ARRHYTHMIA POSSIBLE LEFT ATRIAL ENLARGEMENT [-0.1mV P-WAVE IN V1/V2] Compared to ECG 08/29/2025 19:08:48 Sinus tachycardia no longer present Left ventricular hypertrophy no longer present T-wave abnormality no longer present Possible ischemia no longer present Electronically Signed On 09-06-2025 08:52:59 SERVICES ADVISOR by Angela Xiao M.D. [email or web address]
--- NOTE | 2025-09-05 05:02 | ED_ITS ---
HPI - Abdominal Pain 2 General: Chief Complaint: Abdominal Pain Stated Complaint: n/v/d History of Present Illness: Patient is a 54-year-old female with a past medical history of depression who presents with diffuse abdominal pain, nausea vomiting and inability to tolerate p.o., has had chills, diaphoresis. These are recurrent symptoms similar to a previous emergency room visit a few days ago, in which she was found to have a enteritis and was admitted to the hospital, initially started on Zosyn and then had transitioned to [facility] outpatient which she states she has been taking. The patient reports only being able to consume small amounts of liquids, with symptoms worsening around midnight. Associated Symptoms: Reports chills, nausea and vomiting Related Data Home Medications ?Medication ?Instructions ?Recorded ?Confirmed [id number] 250 2 tab PO Q6H PRN Pa in 09/05/25 09/05/25 mg-250 mg-65 mg tablet (Excedrin Migraine) fexofenadine 60 mg tablet 60 mg PO BID 09/05/25 Previous Rx's ?Medication ?Instructions ?Recorded metoprolol succinate 50 mg See Rx Instructions .Route 05/05/25 tablet,extended release 24 hr .COMPLEX #90 tabs venlafaxine 75 mg tablet,extended 75 mg PO DAILY #90 t abs 07/28/25 release 24 hr ciprofloxacin HCl 500 mg tablet 500 mg PO BID 5 days # 10 tabs 09/01/25 dicyclomine 10 mg capsule 10 mg PO QID 7 days #28 caps 09/01/25 metronidazole 500 mg tablet 500 mg PO BID 5 days #10 t abs 09/01/25 potassium chloride 20 mEq 40 meq (2 x 20 mEq) PO DAILY 7 09/01/25 tablet,extended days #7 tabs release(part/cryst) (Klor-Con M) promethazine 25 mg rectal 25 mg RI Q6H PRN nausea and 09/01/25 suppository vomiting #12 ea Allergies Allergy/AdvReac Type Severity Reaction Status Date / Time Alpha-Gal Allergy Unknown Verified 08/29/25 19:10 ([id number]-Xqmxv-5,3-Gala topiramate (From Topamax) Allergy brain fog Verified 08/29/25 19:10 Review of Systems 2 General: Reports: 10 or more systems reviewed and unremarkable except in HPI and below Const: Reports: chills, change in appetite and malaise GI: Reports: abdominal pain, nausea and vomiting PFSH ED 2 PFSH: Medical History (Updated 09/05/25 @ 17:07 by Valerio Gonzalez DO) History of kidney stones Migraine with aura Surgical History History of lumpectomy of right breast History of appendectomy History of cholecystectomy History of total hysterectomy with bilateral salpingo-oophorectomy (BSO) Family History Mother Cancer lung (smoke related) Father Hyperlipidemia Atrial fibrillation Lung disease asthma Social History Smoking and tobacco/nicotine status: current every day tobacco/nicotine user Quit status (tobacco/nicotine): has quit using Year quit tobacco: 2014 Former quit date comment: 2 ppd x 25 years Alcohol intake: never Substance/Drug Use: current Lives independently: Yes Household members: spouse Marital status: Number of children: 2 Number of grandchildren: 7 Current occupational status: employed 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 Abdomen mildly distended, mild generalized diffuse tenderness, no peritonitic signs, bowel sounds increased, no CVA tenderness, no overlying skin changes. GCS 15, mildly dry mucous membranes, slightly delayed cap refill, no leg swelling, breathing comfortably on room air, saturating well Course 2 Vital Signs: Vital signs: Vital Signs Temperature 99.1 F 09/05/25 16:00 Pulse Rate 91 09/05/25 16:00 Respiratory Rate 17 09/05/25 16:00 Blood Pressure 192/110 09/05/25 16:00 Pulse Oximetry 97 09/05/25 16:00 Oxygen Delivery Me thod Room Air 09/05/25 16:00 MDM - Abdominal Pain Medical Decision Making -ddx: Enteritis, gastritis, pancreatitis, cholecystitis, SBO, constipation, dehydration, electrolyte abnormality, ARIE. - Patient presents seemingly more symptomatic than when she was discharged, has had increasing amount of inability to p.o., nausea vomiting, worsened at midnight tonight, no severe worsening of her abdominal pain and so since had imaging a few days ago with no alarm symptoms and will not repeat at this time. Initial laboratory studies showing mild lactic acidosis and electrolyte abnormalities consistent with her inability to p.o., mild dehydration, these were repleted and fluids were given, she felt only moderately improved with pain and nausea control, her nausea persisted, Reglan was tried additionally because she still felt very symptomatic, relative inability to p.o. and was just discharged, she was readmitted to the hospital for further management of her GI symptoms and infection, discussed case with hospitalist and will not repeat CT imaging at this time. Lab Data 09/05/25 05:15 09/05/25 05:15 Labs/Radiology: Laboratory Results WBC 9.90 10^3/uL (3.29-11.43) 09/05/25 05:15 RBC 4.05 10^6/uL (3.85-5.65) 09/05/25 05:15 Hgb 12.40 g/dL (11.27-16.99) 09/05/25 05:15 Hct 36.6 % (36-47) 09/05/25 05:15 MCV 90.4 fl (85-98) 09/05/25 05:15 MCH 30.6 pg (27-33) 09/05/25 05:15 MCHC 33.9 g/dL (30-55) 09/05/25 05:15 RDW 13.8 % (12.1-15.1) 09/05/25 05:15 Plt Count 294 10^3/cmm (157-399) 09/05/25 05:15 MPV 10.4 fL (7.4-10.4) 09/05/25 05:15 Neut % (Auto) 77.0 % 09/05/25 05:15 Lymph % (Auto) 15.2 % 09/05/25 05:15 [place] % (Auto) 6.5 % 09/05/25 05:15 Eos % (Auto) 0.5 % 09/05/25 05:15 Baso % (Auto) 0.4 % 09/05/25 05:15 Neut # (Auto) 7.63 10^3/uL (1.8-7.7) 09/05/25 05:15 Lymph # (Auto) 1.5 10^3/uL (0.8-4.8) 09/05/25 05:15 Grainger # (Auto) 0.6 10^3/uL (0.2-0.9) 09/05/25 05:15 Eos # (Auto) 0.1 10^3/uL (0.0-0.8) 09/05/25 05:15 Baso # (Auto) 0.0 10^3/uL (0.0-0.1) 09/05/25 05:15 Nucleated RBC % (auto) 0 % 09/05/25 05:15 Nucleated RBCs # 0.0 /100WBC 09/05/25 05:15 Sodium 142 mmol/L (136-145) 09/05/25 05:15 Potassium 3.4 mmol/L (3.5-5.1) L 09/05/25 05:15 Chloride 107 mmol/L (98-107) 09/05/25 05:15 Carbon Dioxide 18 mmol/L (22-29) L 09/05/25 05:15 Anion Gap 20.4 (5-19) H 09/05/25 05:15 BUN 11 mg/dL (6-20) 09/05/25 05:15 Creatinine 1.0 mg/dL (0.5-0.9) H 09/05/25 05:15 GFR Calculation 58.2 mL/min (90-130) L 09/05/25 05:15 Glucose 170 mg/dL (65-115) H 09/05/25 05:15 Calculated Osmolality 297 mOsm/kg (285-295) H 09/05/25 05:15 Lactic Acid 2.3 mmol/L (0.5-2.2) H 09/05/25 05:15 Calcium 9.7 mg/dL (8.5-10.5) 09/05/25 05:15 Phosphorus 1.5 mg/dL (2.5-4.5) L 09/05/25 05:15 Magnesium 2.0 mg/dL (1.7-2.3) 09/05/25 05:15 C-React Prot High Sens 0.490 mg/dL (0.0-0.3) H 09/05/25 05:15 Lipase 50 U/L (13-60) 09/05/25 05:15 Procalcitonin 0.05 ng/mL (0-0.5) 09/05/25 05:15 Urine Color Yellow (Yellow) 09/05/25 06:47 Urine Appearance Clear (CLEAR) 09/05/25 06:47 Urine pH 7.5 (5-7) 09/05/25 06:47 Ur Specific [place] 1.013 (1.005-1.030) 09/05/25 06:47 Urine Protein Negative (Negative) 09/05/25 06:47 Urine Glucose (UA) Negative (Normal) 09/05/25 06:47 Urine Ketones 1+ (Negative) H 09/05/25 06:47 Urine Blood Negative (Negative) 09/05/25 06:47 Urine Nitrate Negative (Negative) 09/05/25 06:47 Urine Bilirubin Negative (Negative) 09/05/25 06:47 Urine Urobilinogen 0.2 mg/dL (Negative) 09/05/25 06:47 Ur Leukocyte Esterase Negative (Negative) 09/05/25 06:47 Urine RBC 0-2 /hpf (0-2) 09/05/25 06:47 Urine WBC 0-5 /hpf (0-5) 09/05/25 06:47 Ur Squamous Epith Cells 0-5 /hpf (0-5) 09/05/25 06:47 Amorphous Sediment Not Reportable 09/05/25 06:47 Urine Bacteria None seen /hpf (NONE) 09/05/25 06:47 Hyaline Casts 0.81 /lpf 09/05/25 06:47 No radiology studies performed this visit Discharge Plan Discharge Patient Disposition: Admitted As Inpatient Admit Provider: Jaqui Alvares Clinical Impression: Gastroenteritis, Acute hypokalemia, Dehydration Condition: Stable Coding Level of Care Code ED Grocery Caddy for Stephen Triplett
[2025-09-05 05:22] LABS: Hematocrit 36.6 % (36-47); Hemoglobin 12.40 g/dL (11.27-16.99); Mean Corpuscular HGB Conc 33.9 g/dL (30-55); Mean Corpuscular Hemoglobin 30.6 pg (27-33); Mean Corpuscular Volume 90.4 fl (85-98); Nucleated Red Blood Cells % 0 %; Platelet Count 294 10^3/cmm (157-399); Red Blood Count 4.05 10^6/uL (3.85-5.65); White Blood Count 9.90 10^3/uL (3.29-11.43)
[2025-09-05] MEDS: ondansetron 2 mg/ML SDV 2 mL 4 MG IVP ×4 (05:29→23:11)
[2025-09-05] MEDS: morphine 4 mg/mL SDV 1 mL IVP (05:30)
[2025-09-05] MEDS: ampicillin-sulbactam 3 GM in sodium chloride 0.9% (plus) 50 ML IV (05:32)
[2025-09-05 05:45] LABS: Anion Gap 20.4 (5-19); Blood Urea Nitrogen 11 mg/dL (6-20); Calcium 9.7 mg/dL (8.5-10.5); Carbon Dioxide 18 mmol/L (22-29); Chloride 107 mmol/L (98-107); Glucose 170 mg/dL (65-115); Lipase 50 U/L (13-60); Magnesium 2.0 mg/dL (1.7-2.3); Osmolality Calculated 297 mOsm/kg (285-295); Potassium 3.4 mmol/L (3.5-5.1); Sodium 142 mmol/L (136-145)
[2025-09-05 05:46] LABS: Lactic Sepsis W/Reflex 2.3 mmol/L (0.5-2.2)
[2025-09-05 05:52] LABS: Procalcitonin 0.05 ng/mL (0-0.5)
[2025-09-05 06:00] LABS: CRP High Sensitivity Cardiac 0.490 mg/dL (0.0-0.3)
--- NOTE | 2025-09-05 06:53 | PM.HP ---
Providers/Chief Complaint Primary Care Provider: Lara Paz MD Chief Complaint: n/v/d History of Present Illness Olamide Au is a 54 year old female Medications/Allergies Home Medications ?Medication ?Instructions ?Recorded ?Confirmed ?Last Taken ?Type metoprolol succinate 50 mg See Rx Instructions .Route 05/05/25 08/30/25 08/29/25 13:00 Rx tablet,extended release 24 hr .COMPLEX #90 tabs venlafaxine 75 mg tablet,extended 75 mg PO DAILY #90 tabs 07/28/25 08/30/25 08/29/25 13:00 Rx release 24 hr Evon 60 mg PO DAILY 08/30/25 08/30/25 08/29/25 13:00 History Excedrin Migraine 250 mg PO QID PRN Headache 08/30/25 08/30/25 08/29/25 13:00 History ciprofloxacin HCl 500 mg tablet 500 mg PO BID 5 days #10 tabs 09/01/25 Unknown Rx dicyclomine 10 mg capsule 10 mg PO QID 7 days #28 caps 09/01/25 Unknown Rx metronidazole 500 mg tablet 500 mg PO BID 5 days #10 tabs 09/01/25 Unknown Rx potassium chloride 20 mEq 40 meq (2 x 20 mEq) PO DAILY 7 09/01/25 Unknown Rx tablet,extended days #7 tabs release(part/cryst) (Klor-Con M) promethazine 25 mg rectal 25 mg DE Q6H PRN nausea and 09/01/25 Unknown Rx suppository vomiting #12 ea Allergies Allergy/AdvReac Type Severity Reaction Status Date / Time Alpha-Gal Allergy Unknown Verified 08/29/25 19:10 (Onocssidl-Dpjjs-5,3-Gala topiramate (From Topamax) Allergy brain fog Verified 08/29/25 19:10 PFSH Acute PFSH: Medical History (Updated 08/30/25 @ 00:23 by Dave Kirk MD) History of kidney stones Migraine with aura Surgical History History of lumpectomy of right breast History of appendectomy History of cholecystectomy History of total hysterectomy with bilateral salpingo-oophorectomy (BSO) Family History Mother Cancer lung (smoke related) Father Hyperlipidemia Atrial fibrillation Lung disease asthma Social History Smoking and tobacco/nicotine status: current every day tobacco/nicotine user Quit status (tobacco/nicotine): has quit using Year quit tobacco: 2014 Former quit date comment: 2 ppd x 25 years Alcohol intake: never Substance/Drug Use: current Lives independently: Yes Household members: spouse Marital status: Number of children: 2 Number of grandchildren: 7 Current occupational status: employed 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 Abdominal pain: Plan: START OF MEDICAL REPORT Jaqui Alvares D.O. Board Certified Internal Medicine Chief Complaint: Nausea, abdominal pain, diarrhea History of Present Illness: The patient is a 54-year-old female who was recently hospitalized at this facility from August 30, 2025 until September 01, 2025 who presents with chief complaint of symptoms of gastroenteritis which she states has persisted for 2 weeks. The patient uses marijuana on a daily basis which she claims helps with her history of migraines as well as fibromyalgia. She states her abdominal pain is a bandlike distribution the superior abdomen she describes it as a pressure-like sensation. She states that the pain is constant and is worse with oral intake. She does not take any medication for the pain at home. As worst she rates the pain as 10 out of 10 currently claims he rates 9 out of 10. The patient admits to rigors, nausea, emesis, diarrhea, dyspnea. She denies fever, cough, wheeze, myalgia, any nose Willis, dysgeusia. She denies consumption of raw or undercooked food. She denies frequent NSAID use. She denies melena and she denies hematochezia. Aside from recent antibiotics with which she was discharged, she denies any other recent antibiotic use. She presents for further evaluation I have explained to the patient (if they are coherent, able to comprehend, and/or are communicative) and/or their family member(s), friend(s), guardian(s), and/or other individual(s) present on the patient?s behalf (if present) the patient?s current medical condition, the patient?s current plan of care, and I have answered all questions posed to me. Family History: Cancer Physical Examination: General: -Alert. -No acute distress. -No dyspnea. -No tachypnea. Head: -Atraumatic. -Normocephalic. Eyes: -Pupils equally round and reactive to light and accommodation. -Extraocular muscles intact. Neurological: -Cranial nerves II-XII intact. Neck: -No jugular venous distention. -No thyromegaly. -No cervical lymphadenopathy. Heart: -Regular rate. -Regular rhythm. -No murmurs. -No gallops. -No rubs. Lungs: -No wheeze. -No rhonchi. -No rales. Abdomen: -Normal bowel sounds in all four quadrants. -No rebound. -No guarding. -Minimal tenderness. Extremities: -2/4 pulse in all four extremities. -No clubbing. -No cyanosis. -No edema. -No calf tenderness present bilaterally. -Negative Jose Juan?s sign bilaterally. Musculoskeletal: -5/5 bilateral upper extremity strength. -5/5 bilateral lower extremity strength. -Sensorium of bilateral upper extremities are equal and intact. -Sensorium of bilateral lower extremities are equal and intact. Additional Details / Additional Findings / Exceptions / Miscellaneous: Pertinent Laboratory Results / Pertinent Radiology Results / Pertinent Diagnostic Results / Pertinent Vital Signs: Blood pressure 186/114, heart rate 80, respirations 20, temperature 98.3?, 9% room air. Potassium 3.4, bicarbonate 18, phosphorus 1.5 Social History: Caffeine: Coffee Tobacco: Former smoker Alcohol: Denies Pets: Yes + Allergies: Topiramate, alpha-gal Code Status: Full Admission Date: 6:51 AM on September 05, 2025 Discharge Date: History of Present Illness / Hospital Course Summary: The patient is a 54-year-old female who was recently hospitalized at this facility from August 30, 2025 until September 01, 2025 who presents with chief complaint of symptoms of gastroenteritis which she states has persisted for 2 weeks. The patient uses marijuana on a daily basis which she claims helps with her history of migraines as well as fibromyalgia. She states her abdominal pain is a bandlike distribution the superior abdomen she describes it as a pressure-like sensation. She states that the pain is constant and is worse with oral intake. She does not take any medication for the pain at home. As worst she rates the pain as 10 out of 10 currently claims he rates 9 out of 10. The patient admits to rigors, nausea, emesis, diarrhea, dyspnea. She denies fever, cough, wheeze, myalgia, any nose Willis, dysgeusia. She denies consumption of raw or undercooked food. She denies frequent NSAID use. She denies melena and she denies hematochezia. Aside from recent antibiotics with which she was discharged, she denies any other recent antibiotic use. She presents for further evaluation Surgical History: Cholecystectomy, appendectomy, history acne, right breast lumpectomy Assessment / Plan + Medical History: Intractable nausea/emesis with question of gastroenteritis. This is likely commercial representative of cannabinoid hyperemesis syndrome. Check stool panel. Will provide when necessary antiemetics as well as when necessary he analgesia. IV lactated Ringer 100 ML?s per hour Marijuana abuse. The patient will need to be counseled regarding marijuana cessation Depression Query history of IBS Seasonal allergies History migraine Hypophosphatemia. We will monitor phosphorus level intermittently and supplemented as necessary COPD, not O2 dependent Fibromyalgia History of nephrolithiasis Hypokalemia. We will monitor potassium level intermittently and supplemented as necessary Metabolic acidosis. We will monitor serum bicarbonate level intermittently. IV lactated Ringer at 100 ML?s per hour GI perplexes. Protonix 40 mg IV daily DVT prophylaxis. Bilateral SCD Consultations: None Disposition: Anticipate discharge within 48 hours + Discharge Diet: Regular Discharge Activity: Discharge Condition: Discharge Medications: Time Spent with Patient: Greater than 30 minutes. Jaqui Alvares D.O. Board Certified Internal Medicine END OF MEDICAL REPORT PDMP PDMP Reviewed: Not Reviewed Attestations Medical Necessity Statement*: Anticipate discharge within 48 hours Coding Level of Care Code Acute Code for [facility] Diagnoses Abdominal pain R10.9
[2025-09-05] MEDS: metoclopramide 5 mg/mL SDV 2 mL 10 MG IVP ×3 (06:59→22:03)
[2025-09-05] MEDS: labetalol 5 mg/mL SDV 20mL 10 MG IVP (07:00)
[2025-09-05] MEDS: potassium phosphate (mEq K) 40 MEQ in sodium chloride 0.9% (100 ml) 100 ML 27.25 MEQ IV (07:01)
[2025-09-05 07:06] LABS: Reflex Lactate Order REFLEX LACTIC ORDERD
[2025-09-05 07:35] LABS: Glucose Urine UA Negative (Normal); Nitrate Urine Negative (Negative); Specific Gravity, Urine 1.013 (1.005-1.030)
[2025-09-05 07:38] LABS: Add Urine Microscopic? YES
[2025-09-05] MEDS: lidocaine 1% 5 ML in potassium chloride premix 100 ML 26.25 ML IV (08:11)
[2025-09-05] MEDS: pantoprazole 40 mg SDV IVP (08:26)
[2025-09-05] MEDS: morphine 4 mg/mL SDV 1 mL 1 MG IVP ×2 (09:12→15:57)
[2025-09-05 09:46] LABS: Lactic Acid level (Lactate) 2.1 mmol/L (0.5-2.2)
[2025-09-05] MEDS: hyDRALAzine 20 mg/mL INJ 1 mL 10 MG IVP ×2 (16:40→23:11)
[2025-09-06] VITALS (8 sets, daily range): BP systolic 102–186; BP diastolic 60–97; PULSE 97–143; RESP 16–18; TEMP 36.4–37.3; O2SAT 96–99
[2025-09-06] MEDS: metoclopramide 5 mg/mL SDV 2 mL 10 MG IVP ×4 (05:13→19:59)
[2025-09-06] MEDS: ondansetron 2 mg/ML SDV 2 mL 4 MG IVP ×3 (05:15→19:59)
--- OUTSIDE RECORDS SUMMARY | 2025-09-06 05:21 | XMS_ITS | Patient Health Record ---
Author Organization [facility] Address [address] [place] [address] Care Team Providers Care Licsw Name Role Phone JacksonLara patel Primary Care Provider UnavailLILIANA Sabillon Unavailable [phone] Allergies Allergen (clinical drug ingredient) Drug/Non Drug [...] with hydronephrosis (N13.2) Active confirmed Problem Leukocytosis (828908384) Leukocytosis (D72.829) Active confirmed Problem Kidney stone (16139331) Left nephrolithiasis (N20.0) Active confirmed Plan Of Treatment Pending Test Test Name Order Date Renal Ultrasound TERESA [id number] 03/01/2024 BASIC METABOLIC PANEL (28076) 03/01/2024 CBC (H/H, RBC, INDICES, WBC, PLT) (1759) 03/01/2024 Future Test Test Name Order Date [id number] KUB, X-Ray: Abdomen, Kidney, Urete r, bladder 08/19/2024 Insurance Providers Payer Name Payer Address Payer Phone Subscriber Number Group Number Insured Name Patient Relationship to Insured Coverage Start Date Coverage End Date [facility] [address] [address] [place], [place] [id number] [phone] [id number] Olamide Au Self - patient is the [...]
[2025-09-06 06:25] LABS: Alanine Aminotransferase 24 U/L (0-33); Albumin Level 4.2 g/dL (3.5-5.2); Alkaline Phosphatase 74 U/L (35-105); Anion Gap 16.5 (5-19); Aspartate Amino Transferase 20 U/L (0-32); Blood Urea Nitrogen 8 mg/dL (6-20); Calcium 9.3 mg/dL (8.5-10.5); Carbon Dioxide 22 mmol/L (22-29); Chloride 105 mmol/L (98-107); Globulin 2.4 g/dL (1.3-4.6); Glucose 138 mg/dL (65-115); Osmolality Calculated 291 mOsm/kg (285-295); Potassium 3.5 mmol/L (3.5-5.1); Sodium 140 mmol/L (136-145); Total Protein 6.6 g/dL (6.6-8.7)
[2025-09-06] MEDS: hyDRALAzine 20 mg/mL INJ 1 mL 10 MG IVP (08:17)
[2025-09-06] MEDS: pantoprazole 40 mg SDV IVP (08:17)
--- NOTE | 2025-09-06 09:38 | PC.CHAP ---
Pastoral Care Encounter/Spiritual Assessment Type of Contact [] Declined disc pad grinding machine feeder visit [] Patient/Family/Request visit [] Outpatient visit [] Follow-up visit [] Physician referral [] Code/Alert [x] Routine visit [] Staff referral [] Actively dying [] Patient sleeping [] Family support [] [] Out of room [] Palliative care [] [] Receiving care in room [] Pre-surgical visit [] Trauma [] Long length of stay [] ICU visit [] Other: Relational/Emotional Strength x[] Patient feels connected with others/family/visitors/staff [] Distress [] Loneliness/isolation [] Abandonment Spirituality of Patient [x] Person of Josefina [] Attends Sabianism of their Josefina [x] Believes in Prayer [] Reads Bible or Uatsdin materials [] There are Spiritual issues to be addressed Operating Room Technologist Interventions [x] Prayer [x] Active listening [x Non-anxious presence [x] Spiritual/emotional support [] Crisis/trauma care [] Spiritual counseling [] Bereavement support [] Provided bereavement packet [] Provided Bible/devotional materials [] Provided toy/stuffed animal, coloring book to patient or family member [] Provided Communion [] Anointing/[place]ley [] Salvation [x] Completed spiritual assessment [] Other: Impact on Illness or Injury [] Angry [] Fearful [] Anxious [] Often cries [] Exhaustion [] Unable to work [] Unable to attend religious [] Unable to walk/stand [] Unable to read [] Unable to drive [] Unable to eat/drink [] Unable to sleep [] Unable to be with family [] Patient intubated [] Other: Summary Time spent with patient 5 min
--- NOTE | 2025-09-06 10:58 | P.PN_ITS ---
Subjective 2 Subjective: Patient is an this morning on the medical floor. She is a 54-year-old female who was admitted yesterday to the ER because of complaint of intractable nausea and vomiting. Patient was just discharged from this hospital roughly 4 days ago for similar symptomatology. She comes back with complaint of symptoms. She reports her symptoms provoked by food and smell of certain food. She denies any associated diarrhea or constipation or fever. No abdominal distention. Patient acknowledges history of hysterectomy through due to endometriosis. Otherwise, she denies any prior history of intestinal obstruction from adhesion. Vitals/I&O/Wt Last Vital Signs Temp 99.0 F 09/06/25 07:17 Pulse 122 H 09/06/25 07:17 Resp 16 09/06/25 07:17 BP 181/97 09/06/25 07:17 Pulse Ox 97 09/06/25 07:17 O2 Del Method Room Air 09/06/25 07:17 09/05/25 09/06/25 09/06/25 22:59 06:59 14:59 Intake Total 825 / 1875 1080 / 2955 120 / 120 Balance 825 / 1875 1080 / 2955 120 / 120 Weight last 48 hrs Weight 57.691 kg Weight 62.142 kg Physical Exam 2 Narrative: General: Awake and alert. Cooperative. Chest/Resp: Normal respiratory chest movts; no obvious respiratory distress. CVS: Tachycardic, with heart rate in the 120s. Otherwise, regular rhythm. GI: Non-distended; nontender. Soft. No obvious organomegaly. Bowel rather hyper-active. Extremities: No obvious pitting pedal edema. Skin: Moderate dry skin. No obvious new rashes or new skin lesions. Data 09/05/25 05:15 09/06/25 05:49 CT Abd/Pel: My impression: CT abdominal & pelvis done last week, exactly 8 days ago reviewed, shows there is below. Radiologist's impression: 1. No bowel obstruction or inflammatory process associated with the bowel. 2. No free air or significant free fluid in the abdomen or pelvis. 3. The appendix is not visualized but there are no secondary signs of acute appendicitis. A&P Assessment and plan 1. Intractable nausea and vomitin. Abdominal pain: 3. Chronic tachycardia: Plan: 1. Intractable nausea and vomiting: The very course of this is not clear to me. Given that this happened last 2 weeks, and this happened again, we need to look more into this. I have ordered a repeat CT scan of the abdomen and pelvis, especially, given the apparent hyperactive bowel sounds on exam. We will make patient n.p.o., except for ice chips & meds at this time. Continue IV hydration with lactated ringer solution. Otherwise, continue empiric treatment with Reglan, compaction, out of window works. 2. Chronic tachycardia: Patient clarifies that this has been going on for the past 20+years. The patient's heart rates are in the 120s, and creeping closer to the 130s on mild exertion. I have gone ahead and put her on oral immediate release metoprolol, though she takes extended release metoprolol for this at home. I will start her on immediate release metoprolol, open is she able to keep things down. Admission status: Given worsening nature of symptomatology, patient's status will change to inpatient. PDMP PDMP Reviewed: Not Reviewed Attestations 2 Medical Necessity Statement*: Patient admitted for apparent severe clinical condition, as outlined in the Assessment & Plan section above. Patient will need up to 2 midnight stay, estimated, at least, to adequately and appropriately treat and optimally control above-named clinical conditions,. Coding Level of Care Code Acute Code for [facility] Diagnoses Intractable nausea and vomiting R11.2 Abdominal pain R10.9 Chronic tachycardia R00.0
[2025-09-06] MEDS: morphine 4 mg/mL SDV 1 mL 1 MG IVP (11:56)
--- NOTE | 2025-09-06 16:17 | CTR_ITS ---
PROCEDURE INFORMATION: Exam: CT Abdomen And Pelvis With Contrast Exam date and time: 09/06/2025 5:56 PM Age: 54 years old Clinical indication: Nausea and vomiting; Additional info: Intractable nausea vomiting; Hyperactive bowel sounds TECHNIQUE: Imaging protocol: Computed tomography of the abdomen and pelvis with contrast. Radiation optimization: All CT scans at this facility use at least one of these dose optimization techniques: automated exposure control; mA and/or kV adjustment per patient size (includes targeted exams where dose is matched to clinical indication); or iterative reconstruction. Contrast material: [id number]; Contrast volume: 100 ml; Contrast route: INTRAVENOUS (IV); Other contrast: Oral, [id number], 30; COMPARISON: CT abdomen pelvis w con* [id number] 08/29/2025 9:35 PM RADIATION DOSE METRICS: Total DLP (mGy-cm): 391.43 FINDINGS: Liver: Normal. No mass. Gallbladder and biliary ducts: Cholecystectomy clips. Pancreas: Normal. No ductal dilation. Spleen: Normal. No splenomegaly. Adrenal glands: Normal. No mass. Kidneys and ureters: Normal. No hydronephrosis. Stomach and bowel: Mild thickening of the sigmoid colon, likely related to underdistention though can not totally exclude inflammatory changes, clinical correlation. Appendix: No evidence of appendicitis. Intraperitoneal space: Unremarkable. No free air. No significant fluid collection. Vasculature: Aortic atherosclerosis. Lymph nodes: Unremarkable. No enlarged lymph nodes. Urinary bladder: Unremarkable as visualized. Reproductive: Probable hysterectomy. Bones/joints: Unremarkable. No acute fracture. Soft tissues: Unremarkable. CT/CT abdomen pelvis w con* [id number] IMPRESSION: 1. Mild thickening of the sigmoid colon, likely related to underdistention though can not totally exclude inflammatory changes, clinical correlation. 2. No definite acute findings.
[2025-09-06] MEDS: iohexol 350 mg/mL 500 mL Btl (per mL) PO (16:33)
[2025-09-06 17:37] LABS: Anion Gap 20.7 (5-19); Blood Urea Nitrogen 8 mg/dL (6-20); Calcium 9.6 mg/dL (8.5-10.5); Carbon Dioxide 19 mmol/L (22-29); Chloride 102 mmol/L (98-107); Glucose 115 mg/dL (65-115); Magnesium 2.1 mg/dL (1.7-2.3); Osmolality Calculated 285 mOsm/kg (285-295); Potassium 3.7 mmol/L (3.5-5.1); Sodium 138 mmol/L (136-145)
[2025-09-06] MEDS: iohexol 350 mg/mL 500 mL Btl (per mL) IV (18:00)
[2025-09-07 03:55] VITALS: BP 179/90; PULSE 96; RESP 20; TEMP 37.2; O2SAT 2
[2025-09-07] MEDS: metoclopramide 5 mg/mL SDV 2 mL 10 MG IVP (04:08)
[2025-09-07] MEDS: ondansetron 2 mg/ML SDV 2 mL 4 MG IVP (04:08)
[2025-09-07 07:12] VITALS: BP 164/92; PULSE 103; RESP 16; TEMP 37.1; O2SAT 95
[2025-09-07] MEDS: pantoprazole 40 mg SDV IVP (08:33)
--- NOTE | 2025-09-07 10:04 | P.PN_ITS ---
Subjective 2 Subjective: Seeing patient this morning medical floor, she reports persisting nausea/vomiting on oral intakes. Otherwise, she is able to hold little fluid and medication down. She denies any new complaints. Vitals/I&O/Wt Last Vital Signs Temp 98.8 F 09/07/25 07:12 Pulse 103 H 09/07/25 07:12 Resp 16 09/07/25 07:12 BP 164/92 09/07/25 07:12 Pulse Ox 95 09/07/25 07:12 O2 Del Method Room Air 09/07/25 07:12 09/06/25 09/07/25 09/07/25 22:59 06:59 14:59 Intake Total 823.333 / 1183.333 120 / 1303.333 971.667 / 971.667 Balance 823.333 / 1183.333 120 / 1303.333 971.667 / 971.667 Weight last 48 hrs Weight 64.524 kg Weight 57.691 kg Physical Exam 2 Narrative: General: Awake and alert. Cooperative. Chest/Resp: Normal respiratory chest movts; no obvious respiratory distress. CVS: Regular heart rate and rhythm. GI: Non-distended; mild/greatest epigastric tenderness. No obvious organomegaly. Extremities: No obvious pitting pedal edema. Skin: No obvious new rashes or new skin lesions. Data 09/05/25 05:15 09/06/25 16:52 A&P Assessment and plan 1. Intractable nausea and vomitin. Dehydration: 3. Chronic tachycardia: Plan: Currently stable patient. I am changing the IV Reglan to all the Compazine scheduled before every meal. In addition, I will continue patient on IV Zofran on a as needed basis. Anticipate discharge tomorrow. PDMP PDMP Reviewed: Not Reviewed Attestations 2 Medical Necessity Statement*: Patient admitted for apparent severe clinical condition, as outlined in the Assessment & Plan section above. Patient will need one more midnight stay, estimated, at least, to adequately and appropriately treat and optimally control above-named clinical conditions,. Coding Level of Care Code Acute Code for [facility] Diagnoses Intractable nausea and vomiting R11.2 Dehydration E86.0 Chronic tachycardia R00.0
[2025-09-07 11:24] VITALS: BP 122/79; PULSE 87; RESP 17; TEMP 36.9; O2SAT 96
[2025-09-07 16:00] VITALS: BP 127/81; PULSE 94; RESP 16; TEMP 37.2; O2SAT 95
[2025-09-07 20:43] VITALS: RESP 18
[2025-09-07] MEDS: morphine 4 mg/mL SDV 1 mL 1 MG IVP (20:43)
[2025-09-07 21:00] VITALS: BP 150/80; PULSE 94; RESP 17; TEMP 36.9; O2SAT 94
[2025-09-08] VITALS (8 sets, daily range): BP systolic 109–206; BP diastolic 56–110; PULSE 72–112; RESP 16–18; TEMP 36.6–37.2; O2SAT 94–99
[2025-09-08] MEDS: ondansetron 2 mg/ML SDV 2 mL 4 MG IVP (03:10)
[2025-09-08] MEDS: morphine 4 mg/mL SDV 1 mL 1 MG IVP (03:11)
[2025-09-08] MEDS: labetalol 5 mg/mL SDV 20mL 10 MG IVP ×2 (04:47→08:05)
[2025-09-08] MEDS: pantoprazole 40 mg SDV IVP (08:05)
--- NOTE | 2025-09-08 14:10 | PM.DCS ---
Discharge Providers Date of Admission: 09/06/25 16:32 Date of Discharge: September 08, 2025 Attending Provider at Admission: Jaqui Alvares DO Attending Provider at Discharge: Sharif Prado MD Primary Care Provider: Lara Paz MD Diagnoses at Discharge Discharge Diagnosis 1. Intractable nausea and vomitin. Disease of colon: Details from hospital stay: Sigmoid colon abnormality reported on CT scan. Suspect possible undiagnosed inflammatory bowel disease. 3. Dehydration: 4. Acute hypokalemia: 5. Chronic tachycardia: Reason for Visit Reason for Visit: Nausea and vomiting Brief History: Patient had re-presented to the ER 4 days ago with complaint of vomiting. This was intractable, despite trial of Phenergan, and other medications on which she was discharged from this hospital few days ago. She was admitted and started on IV rehydration. IV Reglan, etc., were also tried. Other symptoms which they are empirically. Deficient electrolyte, namely potassium, was replaced with intravenously as tolerated Hospital Course Hospital Course After about 24 to 48 hours, patient had responded very poorly to the IV Reglan. Therefore, Reglan was stopped, and trial of Compazine was started, on a scheduled basis, together with Zofran on a PRN basis. Given better but not satisfactory response to all of these, IV dexamethasone was started yesterday, while patient was monitored. The IV steroid trial was restarted to given CT findings/report of possible inflammatory bowel disease in the sigmoid colon. In the meantime, patient's hospital stay was complicated with an onset of worsening tachycardia. Patient with known history of chronic tachycardia, this was apparently because patient was not getting her home dose of metoprolol, which she is taking for more than 10 years for chronic tachycardia. Her heart rate jumped up to the 140s by day #2. With reasonable control of the vomiting by Day#3, patient was started on immediate-release metoprolol, this helped to control a persistent worsening tachycardia. As of this afternoon, patient reports near return to baseline, having been able to keep all food down today, less than 24 hours after she was there are some IV dexamethasone. Given this, she requested for discharge, and therefore discharged today. Physical Exam Narrative: General: Awake and alert patient. Resp: No obvious respiratory distress or difficulty breathing. Abdomen: Soft. Nontender. Normal bowel sounds. Nondistended. Skin: No obvious rashes or new skin lesions. All other physical findings essentially within normal limits. Discharge Data Studies Completed and Pending Completed Studies During Hospitalization Category Date Time Status CT abdomen pelvis w con* [id number] Routine Cat Scan 09/06/25 16:17 Completed Pending at discharge Category Date Time Status C.Diff PCR (Lab) Routine Lab 09/05/25 08:04 Ordered Immunochemical Fecal OCB Routine Lab 09/05/25 08:04 Ordered Lactoferrin Routine Lab 09/05/25 08:04 Ordered OVA and Parasites, Conc and PE Routine Lab 09/05/25 08:04 Ordered Salmonella / Shigella / Campy Routine Lab 09/05/25 08:04 Ordered Radiology Impressions Abdomen/Pelvis CT 09/06/25 16:17 IMPRESSION: Mild thickening of the sigmoid colon, likely related to underdistention though can not totally exclude inflammatory changes. No definite acute findings. Vitals Last Vital Signs Temp 98 F 09/08/25 12:00 Pulse 112 H 09/08/25 12:00 Resp 18 09/08/25 12:00 BP 178/92 09/08/25 12:00 Pulse Ox 95 09/08/25 12:00 O2 Del Method Room Air 09/08/25 08:00 O2 Flow Rate 95 09/08/25 04:00 Discharge Plan Discharge Patient Disposition: Home Condition: Stable Prescriptions: New dexamethasone 2 mg tablet 4 mg PO BID Qty: 20 0RF pantoprazole [Protonix] 40 mg tablet,delayed release (DR/EC) 40 mg PO DAILY 10 Days Qty: 14 0RF prochlorperazine maleate [Compazine] 5 mg tablet 5 - 10 mg PO .qac Qty: 30 2RF ondansetron 4 mg tablet,disintegrating 4 mg PO Q6H PRN (Reason: nausea and vomiting) Qty: 30 3RF Continued metoprolol succinate 50 mg tablet extended release 24 hr See Rx Instructions .ROUTE .COMPLEX Qty: 90 3RF Dose Instruction: Take 1 tablet by mouth once daily Rx Instructions: Take 1 tablet by mouth once daily venlafaxine 75 mg tablet extended release 24hr 75 mg PO DAILY Qty: 90 0RF fexofenadine 60 mg Tablet 60 mg PO BID rywcgsq-ayktrmwkqgmei-sjghqoru [Excedrin Migraine] 250-250-65 mg Tablet 2 tab PO Q6H PRN (Reason: Pain) potassium chloride [Klor-Con M20] 20 mEq Tablet,Er Particles/Crystals 40 meq PO DAILY 7 Days Qty: 7 0RF promethazine 25 mg suppository 25 mg OR Q6H PRN (Reason: nausea and vomiting) Qty: 12 0RF Discontinued dicyclomine 10 mg Capsule 10 mg PO QID 7 Days Qty: 28 0RF ciprofloxacin HCl 500 mg tablet 500 mg PO BID 5 Days Qty: 10 0RF metronidazole 500 mg tablet 500 mg PO BID 5 Days Qty: 10 0RF Discharge Order = DC NOW: Discharge Order (Routine); Ordered 09/08/25 Ordered By: Sharif Prado Referrals: Lara Paz MD [Primary Care Provider, [facility]] Referral Note: We have notified your physician's clinic of the need for a follow-up appointment to be scheduled. If you have not heard from them within the next 2 business days, please call them directly. Discharge Diet: Advance as tolerated and Usual diet Discharge Activity: Resume usual activity Patient Instructions: Marijuana Abuse, Dehydration (DC), Cannabis Use Disorder (DC), Abdominal Pain (ED), Tachycardia (ED), Cyclic Vomiting Syndrome (DC), Opioid Safety, Patient Portal & Fermin Instructions Activity Restrictions/Additional Instructions: Follow up with your PCP within 1-2 weeks/ as needed. Discharge Attestations Time Spent in Discharge Care*: less than 30 min Quality Metrics Clinical Quality Measures [ No reported AMI, CVA or VTE this stay] Coding Level of Care Code Acute Code for Chg Fwd Diagnoses Intractable nausea and vomiting R11.2 Disease of colon K63.9 Dehydration E86.0 Acute hypokalemia E87.6 Chronic tachycardia R00.0
== END 2025-09-08 14:55 | disposition home or self-care (01) | DRG 392 ==
LOC: ER 07:51 → MEDSURG 10:15
PROVIDERS: Admitting Provider Internal Medicine; Emergency Provider Student in an Organized Health Care Education/Training Program; PCP Family Medicine; Visit Provider Family Medicine
DX: K52.9 Noninfective gastroenteritis and colitis, unspecified (principal); E87.20 Acidosis, unspecified; E86.0 Dehydration; E87.6 Hypokalemia; R00.0 Tachycardia, unspecified; F32.A Depression, unspecified; F17.210 Nicotine dependence, cigarettes, uncomplicated; G43.109 Migraine with aura, not intractable, without status migrainosus; M79.7 Fibromyalgia; F12.10 Cannabis abuse, uncomplicated; E83.39 Other disorders of phosphorus metabolism; Z79.82 Long term (current) use of aspirin
CPT/HCPCS: 36415; 74177; 80048; 80053; 81001; 83605; 83690; 83735; 84100; 84145; 85025; 86141; 93005; 96365; 96367; 96375; 99285; G0378; J0295; J0360; J0780; J1100; J2270; J2405; J2470; J2765; J3480; J3490; J7030; J7120; J9999

== ENCOUNTER 2025-09-19 08:45 | Emergency (ER) | payer OTHER, SELFPAY ==
[2025-09-19] VITALS (7 sets, daily range): BP systolic 158–185; BP diastolic 67–97; PULSE 69–85; RESP 18; TEMP 36.5; O2SAT 97–99
--- NOTE | 2025-09-19 08:59 | W.ED.NAVMDI ---
HPI - Nausea/Vomiting/Diarrhea General: Chief complaint: Nausea/Vomiting/Diarrhea Stated complaint: n/v/d/f Time Seen by Provider: 09/19/25 08:50 History of Present Illness: 55-year-old female with a history of migraine headaches, appendectomy, cholecystectomy, SKYLER/BSO depression and recent issues with nausea vomiting diarrhea and intractable migraine who presents to the emergency room with nausea vomiting diarrhea and a headache again. Has been admitted to the hospital a couple of times. She has an appointment with surgeon for upper and lower endoscopy. This is today she has an intractable headache again. Pain in her neck and she been having nausea vomiting and diarrhea and cannot keep anything down. Related Data Home Medications ?Medication ?Instructions ?Recorded ?Confirmed tmsopax-ayzlayotbsebh-ndfkkvwr 250 2 tab PO Q6H PRN Pain 09/05/25 09/19/25 mg-250 mg-65 mg tablet (Excedrin Migraine) fexofenadine 60 mg tablet 60 mg PO BID 09/05/25 09/19/25 promethazine 25 mg rectal 25 mg HI Q6H PRN Nausea And 09/19/25 09/19/25 suppository Vomiting Previous Rx's ?Medication ?Instructions ?Recorded metoprolol succinate 50 mg See Rx Instructions .Route 05/05/25 tablet,extended release 24 hr .COMPLEX #90 tabs venlafaxine 75 mg tablet,extended 75 mg PO DAILY #90 tabs 07/28/25 release 24 hr dexamethasone 2 mg tablet 4 mg (2 x 2 mg) PO BID #20 tabs 09/08/25 ondansetron 4 mg disintegrating 4 mg PO Q6H PRN nausea and 09/08/25 tablet vomiting #30 tabs prochlorperazine maleate 5 mg 5 - 10 mg (1 - 2 x 5 mg) PO .qac 09/08/25 tablet (Compazine) nausea and vomiting #30 tabs ondansetron 8 mg disintegrating 8 mg PO Q6H #14 tabs 09/19/25 tablet prednisone 20 mg tablet 60 mg (3 x 20 mg) PO DAILY #20 tabs 09/19/25 promethazine 25 mg rectal 25 mg HI Q6H PRN nausea and 09/19/25 suppository vomiting #12 ea Allergies Allergy/AdvReac Type Severity Reaction Status Date / Time Alpha-Gal Allergy Unknown Verified 09/12/25 11:10 (Duyymkgok-Ntpyy-4,3-Gala topiramate (From Topamax) Allergy brain fog Verified 09/12/25 11:10 Review of Systems Narrative: Constitutional symptoms: Negative except as documented in HPI. Skin symptoms: Negative except as documented in HPI. Eye symptoms: Negative except as documented in HPI. ENMT symptoms: Negative except as documented in HPI. Respiratory symptoms: Negative except as documented in HPI. Cardiovascular symptoms: Negative except as documented in HPI. Gastrointestinal symptoms: Negative except as documented in HPI. Genitourinary symptoms: Negative except as documented in HPI. Musculoskeletal symptoms: Negative except as documented in HPI. Neurologic symptoms: Negative except as documented in HPI. Psychiatric symptoms: Negative except as documented in HPI. Endocrine symptoms: Negative except as documented in HPI. PFSH ED PFSH: Medical History (Updated 09/19/25 @ 12:03 by Pratima Wheeler MD) History of kidney stones Migraine with aura Surgical History History of lumpectomy of right breast History of appendectomy History of cholecystectomy History of total hysterectomy with bilateral salpingo-oophorectomy (BSO) Family History Mother Cancer lung (smoke related) Father Hyperlipidemia Atrial fibrillation Lung disease asthma Social History Smoking and tobacco/nicotine status: never used tobacco/nicotine Quit status (tobacco/nicotine): has quit using Year quit tobacco: 2014 Former quit date comment: 2 ppd x 25 years Alcohol intake: never Substance/Drug Use: current Lives independently: Yes Household members: spouse Marital status: Number of children: 2 Number of grandchildren: 7 Current occupational status: employed 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 Skin: Warm, dry. Head: Normocephalic, atraumatic. Neck: Supple, trachea midline. Eye: Extraocular movements are intact. Ears, nose, mouth and throat: Tacky oral mucosa Cardiovascular: Regular, Normal peripheral perfusion. Respiratory: Lungs are clear to auscultation, respirations are non-labored, breath sounds are equal, Symmetrical chest wall expansion. Gastrointestinal: Soft, Nontender, Non distended Musculoskeletal: Normal ROM, no deformity. Neurological: Alert and oriented, No focal neurological deficit observed. Psychiatric: Cooperative, appropriate mood & affect. Course Vital Signs: Vital signs: Vital Signs Temperature 97.7 F 09/19/25 08:53 Pulse Rate 70 09/19/25 09:03 Respiratory Rate 18 09/19/25 08:53 Blood Pressure 185/89 09/19/25 09:03 Pulse Oximetry 98 09/19/25 09:03 Oxygen Delivery Me thod Room Air 09/19/25 09:03 MDM - Nausea/Vomiting/Diarrhea Medical Decision Making Medical decision making Patient's reason for coming to the emergency room: Nausea and vomiting Social determinants: Employed I reviewed the patient's medical record. 55-year-old female with a history of hypertension, migraine headaches, appendectomy, cholecystectomy, SKYLER/BSO depression and recent issues with nausea vomiting diarrhea and intractable migraine I reviewed the patient's current home meds Patient is on metoprolol at home. Venlafaxine. Alternate historians: None Differential diagnosis for this patient with nausea and vomiting including but not limited to and based on the above HPI, review of systems and physical exam: Urinary tract infection. Appendicitis. Cholecystitis. Colitis. small bowel obstruction. crohn's flare. pancreatitis. gastritis. peptic ulcer. cyclic vomiting. Viral illness. Influenza. COVID. Orders placed to evaluate differential diagnosis based on the above differential, HPI and physical exam CT head: No acute intracranial process. No intracranial hemorrhage, no evidence of infarct. No evidence of acute fracture. This was reviewed and interpreted by myself the emergency room physician. I also reviewed the radiology report. Lab Review: Laboratory results were reviewed and interpreted by myself the emergency room physician. Mildly increased leukocytosis with white count of 18,000. No anemia. Mild renal insufficiency. BUN is up a bit at 23. Urinalysis is negative for infection but she does have a positive marijuana drug screen. Assessment of risk: Level of risk: Moderate risk Hospitalization considerations: I did consider hospitalization but she finally started feeling better Reexamination: Patient was sleeping when I entered the room. She says she feels quite a bit better. Has not had any abdominal pain. We discussed marijuana and she says she has not been smoking anymore and I said it was in her drug screen she tells me it will be there forever no increased work of breathing. No altered mental status. Says she is ready to go home Test considered but not done: Considered abdominal CT scan but she has had 1 recently. Assessment and plan: Cyclic vomiting Dehydration ? Normal saline, Compazine, Benadryl, Norflex and Zofran. - Discharged home - Discussed plan with patient. Answered any questions. - Evaluation and treatment of this problem were appropriate in the emergency setting. Lab Data 09/19/25 09:02 09/19/25 09:[address] 09/19/25 09:30 IMPRESSION: 1. No evidence of intracranial hemorrhage or mass effect. 2. Mild vascular calcification. 3. No acute intracranial findings. Laboratory Results WBC 18.74 10^3/uL (3.29-11.43) H 09/19/25 09:02 RBC 4.52 10^6/uL (3.85-5.65) 09/19/25 09:02 Hgb 14.20 g/dL (11.27-16.99) 09/19/25 09:02 Hct 41.6 % (36-47) 09/19/25 09:02 MCV 92.0 fl (85-98) 09/19/25 09:02 MCH 31.4 pg (27-33) 09/19/25 09:02 MCHC 34.1 g/dL (30-55) 09/19/25 09:02 RDW 13.8 % (12.1-15.1) 09/19/25 09:02 Plt Count 416 10^3/cmm (157-399) H 09/19/25 09:02 MPV 10.9 fL (7.4-10.4) H 09/19/25 09:02 Neut % (Auto) 85.4 % 09/19/25 09:02 Lymph % (Auto) 7.3 % 09/19/25 09:02 [place] % (Auto) 6.2 % 09/19/25 09:02 Eos % (Auto) 0.1 % 09/19/25 09:02 Baso % (Auto) 0.2 % 09/19/25 09:02 Neut # (Auto) 16.01 10^3/uL (1.8-7.7) H 09/19/25 09:02 Lymph # (Auto) 1.4 10^3/uL (0.8-4.8) 09/19/25 09:02 [place] # (Auto) 1.2 10^3/uL (0.2-0.9) H 09/19/25 09:02 Eos # (Auto) 0.0 10^3/uL (0.0-0.8) 09/19/25 09:02 Baso # (Auto) 0.0 10^3/uL (0.0-0.1) 09/19/25 09:02 Nucleated RBC % (auto) 0 % 09/19/25 09:02 Nucleated RBCs # 0.0 /100WBC 09/19/25 09:02 ESR 8 mm/hr (0-15) 09/19/25 09:02 Sodium 135 mmol/L (136-145) L 09/19/25 09:37 Potassium 3.5 mmol/L (3.5-5.1) 09/19/25 09:37 Chloride 103 mmol/L (98-107) 09/19/25 09:37 Carbon Dioxide 18 mmol/L (22-29) L 09/19/25 09:37 Anion Gap 17.5 (5-19) 09/19/25 09:37 BUN 23 mg/dL (6-20) H 09/19/25 09:37 Creatinine 0.8 mg/dL (0.5-0.9) 09/19/25 09:37 GFR Calculation 75.0 mL/min (90-130) L 09/19/25 09:37 Glucose 127 mg/dL (65-115) H 09/19/25 09:37 Calculated Osmolality 285 mOsm/kg (285-295) 09/19/25 09:37 Lactic Acid 1.3 mmol/L (0.5-2.2) 09/19/25 09:37 Calcium 8.6 mg/dL (8.5-10.5) 09/19/25 09:37 Magnesium 2.1 mg/dL (1.7-2.3) 09/19/25 09:37 Total Bilirubin 0.3 mg/dL (0.15-1.2) 09/19/25 09:37 AST 12 U/L (0-32) 09/19/25 09:37 ALT 13 U/L (0-33) 09/19/25 09:37 Alkaline Phosphatase 53 U/L (35-105) 09/19/25 09:37 Troponin T Baseline 19 ng/L (0-10) H 09/19/25 09:37 Troponin T 120 Minute 24.17 ng/L (0-10) H 09/19/25 11:32 Delta Troponin T 5.17 ABS# (0-10) 09/19/25 11:32 C-Reactive Protein 3.0 mg/L (0.0-4.9) 09/19/25 09:37 Total Protein 6.0 g/dL (6.6-8.7) L 09/19/25 09:37 Albumin 3.8 g/dL (3.5-5.2) 09/19/25 09:37 Globulin 2.2 g/dL (1.3-4.6) 09/19/25 09:37 Lipase 21 U/L (13-60) 09/19/25 09:37 Urine Color Yellow (Yellow) 09/19/25 10:13 Urine Appearance Clear (CLEAR) 09/19/25 10:13 Urine pH 6.0 (5-7) 09/19/25 10:13 Ur Specific [place] 1.026 (1.005-1.030) 09/19/25 10:13 Urine Protein Trace (Negative) A 09/19/25 10:13 Urine Glucose (UA) Negative (Normal) 09/19/25 10:13 Urine Ketones Trace (Negative) 09/19/25 10:13 Urine Blood Negative (Negative) 09/19/25 10:13 Urine Nitrate Negative (Negative) 09/19/25 10:13 Urine Bilirubin Negative (Negative) 09/19/25 10:13 Urine Urobilinogen 0.2 mg/dL (Negative) 09/19/25 10:13 Ur Leukocyte Esterase Negative (Negative) 09/19/25 10:13 Urine RBC 0-2 /hpf (0-2) 09/19/25 10:13 Urine WBC 0-5 /hpf (0-5) 09/19/25 10:13 Ur Squamous Epith Cells 0-5 /hpf (0-5) 09/19/25 10:13 Amorphous Sediment Not Reportable 09/19/25 10:13 Urine Bacteria None seen /hpf (NONE) 09/19/25 10:13 Hyaline Casts 2.05 /lpf 09/19/25 10:13 Urine Opiates Screen Negative ng/mL (Negative) 09/19/25 10:13 Ur Barbiturates Screen Negative ng/mL (Negative) 09/19/25 10:13 Ur Phencyclidine Scrn Negative ng/mL (Negative) 09/19/25 10:13 Ur Amphetamines Screen Negative ng/mL (Negative) 09/19/25 10:13 U Benzodiazepines Scrn Negative ng/mL (Negative) 09/19/25 10:13 Urine Cocaine Screen Negative ng/mL (Negative) 09/19/25 10:13 U Marijuana (THC) Screen Positive ng/mL (Negative) H 09/19/25 10:13 Influenza A (PCR) Negative (Negative) 09/19/25 09:02 Influenza Type B (PCR) Negative (Negative) 09/19/25 09:02 RSV (PCR) Negative (Negative) 09/19/25 09:02 SARS-CoV-2 (PCR) Negative (Negative) 09/19/25 09:02 All radiology interpretation(s) finalized by discharge Discharge Plan Discharge Patient Disposition: Home Clinical Impression: Cyclic vomiting syndrome, Migraine headache, Dehydration Condition: Stable Prescriptions: New promethazine 25 mg suppository 25 mg HI Q6H PRN (Reason: nausea and vomiting) Qty: 12 0RF prednisone 20 mg tablet 60 mg PO DAILY Qty: 20 0RF Rx Instructions: 3 tabs (60 mg) x 3 days. 2 tabs (40 mg) x 3 days. 1 tab (20 mg) x 3 days. 1/2 tab (10 mg) x 4 days ondansetron 8 mg tablet,disintegrating 8 mg PO Q6H Qty: 14 0RF Rx Instructions: Take 1/2-1 tab every 6 hours as needed for nausea and vomiting No Action metoprolol succinate 50 mg tablet extended release 24 hr See Rx Instructions .ROUTE .COMPLEX Qty: 90 3RF Dose Instruction: Take 1 tablet by mouth once daily Rx Instructions: Take 1 tablet by mouth once daily venlafaxine 75 mg tablet extended release 24hr 75 mg PO DAILY Qty: 90 0RF fexofenadine 60 mg Tablet 60 mg PO BID lhunkcu-crmldzvtatriy-vrwaihan [Excedrin Migraine] 250-250-65 mg Tablet 2 tab PO Q6H PRN (Reason: Pain) dexamethasone 2 mg tablet 4 mg PO BID Qty: 20 0RF prochlorperazine maleate [Compazine] 5 mg tablet 5 - 10 mg PO .qac Qty: 30 2RF ondansetron 4 mg tablet,disintegrating 4 mg PO Q6H PRN (Reason: nausea and vomiting) Qty: 30 3RF promethazine 25 mg suppository 25 mg HI Q6H PRN (Reason: Nausea And Vomiting) Discharge Orders: Discharge ED (Routine); Ordered 09/19/25 Ordered By: Pratima Wheeler Referrals: Lara Paz MD [Primary Care Provider, Family Practice] Discharge Diet: Advance as tolerated Discharge Activity: Increase activity as tolerated Patient Instructions: Cyclic Vomiting Syndrome (ED), Opioid Safety, Pain Management, Patient Portal & Fermin Instructions Activity Restrictions/Additional Instructions: Keep your appointment with surgery. Thank you for choosing [facility] for your healthcare needs today. You have been screened and evaluated and felt safe for discharge. Health conditions do change or evolve sometimes and as such it is important that you follow up with your Primary Doctor to be re checked, 3-5 days is a general good time frame for follow up. You are always welcome to return to the ED for re assessment if your symptoms are worsening or you have new concerns Print Language: Azeri Coding Level of Care Code ED Pictures Editor for Stephen Triplett
[2025-09-19 09:22] LABS: Hematocrit 41.6 % (36-47); Hemoglobin 14.20 g/dL (11.27-16.99); Mean Corpuscular HGB Conc 34.1 g/dL (30-55); Mean Corpuscular Hemoglobin 31.4 pg (27-33); Mean Corpuscular Volume 92.0 fl (85-98); Nucleated Red Blood Cells % 0 %; Platelet Count 416 10^3/cmm (157-399); Red Blood Count 4.52 10^6/uL (3.85-5.65); White Blood Count 18.74 10^3/uL (3.29-11.43)
[2025-09-19] MEDS: ondansetron 2 mg/ML SDV 2 mL 8 MG IVP (09:22)
[2025-09-19] MEDS: diphenhydrAMINE 50 mg/mL SDV 1mL IVP (09:22)
[2025-09-19] MEDS: orphenadrine 30 mg/mL Inj 2 mL 60 MG IVP (09:26)
--- NOTE | 2025-09-19 09:30 | CT_ITS ---
WS: [id number] CT HEAD TECHNIQUE: Noncontrast CT of the head obtained from the skullbase to the vertex. CLINICAL INFORMATION: headaches COMPARISON: None. DLP: 1058.[address] scans at [facility] use at least one of these dose optimization techniques: automated exposure control; mA and/or kV adjustment per patient size (includes targeted exams where dose is matched to clinical indication); or iterative reconstruction. FINDINGS: No evidence of intracranial hemorrhage or mass effect. Ventricular system and basal cisterns are patent. No extra-axial fluid collections. No evidence of mass or mass effect. Normal chairez-white differentiation. Mild cavernous carotid calcification. Paranasal sinuses and mastoid air cells are well aerated. .Normal visualized soft tissues. CT/CT head wo con* [id number] IMPRESSION: 1. No evidence of intracranial hemorrhage or mass effect. 2. Mild vascular calcification. 3. No acute intracranial findings.
--- NOTE | 2025-09-19 09:46 | ECG_ITS ---
[facility] Giveo Test Date: 2025-09-19 Pat Name: Olamide Au Department: Room: Gender: Female Movers: : 1970 Requested By: Pratima More Order Number: [id number] Aleks MD: Angela Xiao M.D. Measurements Intervals [place] Rate: 65 P: 79 MN: 158 QRS: 64 QRSD: 96 T: 53 QT: 409 QTc: 427 Interpretive Statements SINUS RHYTHM WITH SINUS ARRHYTHMIA POSSIBLE LEFT ATRIAL ENLARGEMENT [-0.1mV P-WAVE IN V1/V2] Compared to ECG 09/05/2025 04:57:20 No significant changes Electronically Signed On 09-19-2025 18:59:38 EDUCATION CONSULTANT by Angela Xiao M.D. [id number]
[2025-09-19 10:01] LABS: Alanine Aminotransferase 13 U/L (0-33); Albumin Level 3.8 g/dL (3.5-5.2); Alkaline Phosphatase 53 U/L (35-105); Anion Gap 17.5 (5-19); Aspartate Amino Transferase 12 U/L (0-32); Blood Urea Nitrogen 23 mg/dL (6-20); Calcium 8.6 mg/dL (8.5-10.5); Carbon Dioxide 18 mmol/L (22-29); Chloride 103 mmol/L (98-107); Globulin 2.2 g/dL (1.3-4.6); Glucose 127 mg/dL (65-115); Lipase 21 U/L (13-60); Magnesium 2.1 mg/dL (1.7-2.3); Osmolality Calculated 285 mOsm/kg (285-295); Potassium 3.5 mmol/L (3.5-5.1); Sodium 135 mmol/L (136-145); Total Protein 6.0 g/dL (6.6-8.7)
[2025-09-19 10:03] LABS: Lactic Sepsis W/Reflex 1.3 mmol/L (0.5-2.2)
[2025-09-19 10:14] LABS: Troponin(5th) Baseline 19 ng/L (0-10)
[2025-09-19 10:18] LABS: Respiratory Syncytial Virus Ce NEGATIVE (Negative); SARS-CoV-2 PCR NEGATIVE (Negative)
[2025-09-19 10:41] LABS: Glucose Urine UA Negative (Normal); Nitrate Urine Negative (Negative); Specific Gravity, Urine 1.026 (1.005-1.030)
[2025-09-19 11:11] LABS: PCP Screen Urine Negative (Negative)
[2025-09-19 12:05] LABS: Troponin 5 2HR 24.17 ng/L (0-10); Troponin 5 2HR Delta 5.17 ABS# (0-10)
== END 2025-09-19 12:39 | disposition home or self-care (01) ==
PROVIDERS: Emergency Provider Emergency Medicine; PCP Family Medicine
DX: G43.A0 Cyclical vomiting, in migraine, not intractable (principal); E86.0 Dehydration; Z11.52 Encounter for screening for COVID-19; Z79.82 Long term (current) use of aspirin; Z87.891 Personal history of nicotine dependence
CPT/HCPCS: 36415; 70450; 80053; 80306; 81001; 83605; 83690; 83735; 84484; 85025; 85651; 86140; 87040; 87637; 93005; 96361; 96374; 96375; 99285; J0780; J1100; J1200; J2360; J2405; J7030

== ENCOUNTER 2025-09-26 07:12 | Day surgery (SDC) | payer OTHER, SELFPAY ==
[2025-09-26 07:38] VITALS: BP 129/98; PULSE 94; RESP 18; TEMP 36.7; O2SAT 97; BMI 22.6
--- NOTE | 2025-09-26 07:54 | ANES.PREANE2 ---
Pre-Anesthetic Assessment Height/Weight: Height 5 ft 2 in Weight 124 lb Temp Pulse Resp BP Pulse Ox O2 Del Method 98.1 F 94 18 129/98 97 Room Air 09/26/25 07:38 09/26/25 07:38 09/26/25 07:38 09/26/25 07:38 09/26/25 07:38 09/26/25 07:38 Preop Diagnosis: Bowel habit changes Operation Date: 09/26/25 08:30 Proposed Procedures p EGD EGD with Biopsy [id number] G0105 Z12.11 R12(Not Applicable) - Jose Dailey MD s Colonoscopy(Not Applicable) - Jose Dailey MD Was Beta Nick taken within 24 hours: Yes Was Clonidine taken within 24 hours: N/A Last intake: Intake Last Liquid Date 09/25/25 Last Liquid Time 23:51 Last Solid Date 09/23/25 Last Solid Time 08:00 Social No alcohol and No tobacco Quit smoking few years ago Exam alert, oriented x 3, clear to auscultation bilaterally and regular rate & rhythm Airway Submandibular: within normal limits Cervical ROM: within normal limits Mallampati: Class III Dentition: false Anesthetic Plan ASA status: 3 Other: Patient has been hospitalized 3 times over the last month for intractable nausea and vomiting. Patient admits to a 15 pound weight loss during this time Patient states that she has no known issues with anesthesia in the past Prior smoker, quit few years ago Patient is currently on Protonix History of tachycardia on metoprolol for this Alpha gal noted Labs 09/19/25 reviewed and acceptable for procedure. Patient had an elevated WBC at that time, WBC 18.7. Patient denies any fever/chills Plan for MAC anesthesia Medications/Allergies Home Medications ?Medication ?Instructions ?Recorded ?Confirmed ?Last Taken ?Type aqiikzy-imzivvknztlxc-kljvnban 250 2 tab PO Q6H PRN Pain 09/05/25 09/21/25 09/21/25 History mg-250 mg-65 mg tablet (Excedrin Migraine) ondansetron 4 mg disintegrating 4 mg PO Q6H PRN nausea and 09/08/25 09/21/25 09/25/25 Rx tablet vomiting #30 tabs promethazine 25 mg rectal 25 mg GA Q6H PRN Nausea And 09/19/25 09/21/25 09/24/25 History suppository Vomiting metoprolol succinate 50 mg 50 mg PO BEDTIME 09/21/25 09/21/25 09/23/25 History tablet,extended release 24 hr pantoprazole 40 mg tablet,delayed 40 mg PO BID 30 days #60 tabs 09/21/25 09/26/25 09/25/25 Rx release Allergies Allergy/AdvReac Type Severity Reaction Status Date / Time Alpha-Gal Allergy Unknown Verified 09/21/25 10:07 (Zutvgippy-Tyzuo-4,3-Gala topiramate (From Topamax) Allergy brain fog Verified 09/21/25 10:07 Current Medications Generic Name Dose Route Start Last Admin Trade Name Freq PRN Reason Stop Dose Admin Sodium Chloride 1,000 mls @ 15 mls/hr 09/26/25 07:14 09/26/25 07:44 Sodium Chloride 0.9% IV 09/27/25 07:13 15 mls/hr .Q24H PRN Administration COLONOSCOPY FLUIDS PFSH Anesthesia Medical History (Updated 09/25/25 @ 15:41 by Jose Dailey MD) Heartburn History of kidney stones Migraine with aura Surgical History History of lumpectomy of right breast History of appendectomy History of cholecystectomy History of total hysterectomy with bilateral salpingo-oophorectomy (BSO) Family History Mother Cancer lung (smoke related) Father Hyperlipidemia Atrial fibrillation Lung disease asthma Social History Smoking and tobacco/nicotine status: never used tobacco/nicotine Quit status (tobacco/nicotine): has quit using Year quit tobacco: 2014 Former quit date comment: 2 ppd x 25 years Alcohol intake: never Substance/Drug Use: current Lives independently: Yes Household members: spouse Marital status: Number of children: 2 Number of grandchildren: 7 Current occupational status: employed 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
--- NOTE | 2025-09-26 08:43 | W.PM.OPSUD ---
Surgery/Procedure H&P Update DATE OF PROCEDURE: September 26, 2025 DATE H&P PERFORMED: 09/21/25 H&P UPDATE INFORMATION: I have reviewed H&P completed within last 30 days, I have examined patient prior to procedure, No changes to prior documentation and Risks and benefits of the procedure reviewed PREOP DIAGNOSIS: Bowel habit changes PLANNED PROCEDURE: Operation Date: 09/26/25 08:30 Proposed Procedures p EGD EGD with Biopsy [id number] G0105 Z12.11 R12(Not Applicable) - Jose Dailey MD s Colonoscopy(Not Applicable) - Jose Dailey MD
[2025-09-26 09:05] VITALS: BP 139/78; PULSE 85; RESP 18; TEMP 36.2; O2SAT 100
[2025-09-26 09:24] VITALS: BP 140/86; PULSE 84; RESP 16; O2SAT 98
--- NOTE | 2025-09-26 09:40 | ANE.PACU2 ---
Inpatient post-anesthesia follow up: Airway intact: Yes Vital signs: Temperature 97.2 F Pulse Rate 84 Respiratory Rate 16 Blood Pressure 140/86 Pulse Oximetry 98 Oxygen Delivery Me thod Room Air Oxygen Flow Rate Fraction of Inspir ed Oxygen Hydration adequate: Yes Nausea and vomiting: No Pain level: 1 Mental status: Baseline
== END 2025-09-26 09:40 | disposition home or self-care (01) ==
PROVIDERS: PCP Family Medicine; Visit Provider Student in an Organized Health Care Education/Training Program
PROC: 0DJ08ZZ Inspection of Upper Intestinal Tract, Via Natural or Artificial Opening Endoscopic (ICD-10-PCS; principal; 2025-09-26 08:30)
PROC: 0DJD8ZZ Inspection of Lower Intestinal Tract, Via Natural or Artificial Opening Endoscopic (ICD-10-PCS; CPT 45378; 2025-09-26 08:30)
DX: Z12.11 Encounter for screening for malignant neoplasm of colon (principal); R12 Heartburn; R19.5 Other fecal abnormalities; K29.80 Duodenitis without bleeding; K29.50 Unspecified chronic gastritis without bleeding; Z87.891 Personal history of nicotine dependence; Z91.014 Allergy to mammalian meats
CPT/HCPCS: 45378; 88305; 88342; J7030